=== PATIENT | female | born 1930 | race Caucasian/White ===

== ENCOUNTER 2018-11-09 13:22 | Inpatient (IN) | payer OTHER ==
--- NOTE | 2018-11-09 14:07 | PDOC ---
Documentation entered by Liz Driscoll SCRIBE, acting as scribe for Carol Gaalviz MD. Carol Galaviz MD: This documentation has been prepared by the Yamila urias Adrianna, SCRIBE, under my direction and personally reviewed by me in its entirety. I confirm that the documentation accurately reflects all work, treatment, procedures, and medical decision making performed by me. Attending Attestation - Resident Resident Name: Tyrel Hernandez - ED Attending Attestation I have performed the following: I have examined & evaluated the patient, The case was reviewed & discussed with the resident, I agree w/resident's findings & plan, Exceptions are as noted - HPI HPI: 87 yo F with h/o of DM, HTN, and multiple myeloma, who presents to the ED for evaluation of worsening leg swelling for one month. Patient states over last few days they have gotten progressively worse, and now complains of pain, swelling, and redness in right leg. She states that when she lies flat, she feels like her right leg falls asleep. Patient was seen one week ago at [facility], and had a doppler at that time which was reportedly negative. no f/c no cp no sob. no h/o pe or dvt. meds: lisinopril Allergies: NKA, NKDA Surgical History: None reported Social History: None reported PCP: Dr. Ceja Cistern Room Operator: Dr. Yepez 11/09/18 14:11 - Physicial Exam PE: 11/09/18 14:05 awake alert NAD lungs clear bilat heart rrr no mrg abd soft nt nd ext wwp. bilat pitting edema. right foot redness ,ttp. skin scaling right foot. . 2+ dp/ pt pulses bilat. - Medical Decision Making 11/09/18 14:06 87 yo F h/o HTN DM here with bilatleg edema. redness and swelling. differential DVT cellulitis, chf renal failure. plan doppler bilat legs, cxr ekg labs. 11/09/18 14:15 d/w DR Calixto for admission. dr herrera requesting Dr Chaidez for oncology. 11/09/18 18:29 EXAM#: TYPE/EXAM: RESULT: [id number] US/DUPLEX VASCUL US-2LEGS Bilateral swelling. Rule out DVT Impression: There is no evidence of deep venous thromboses in both lower extremities. Reported By: Gopal Carlson MD 11/09/18 16:28 EXAM#: TYPE/EXAM: RESULT: [id number] RAD/CHEST X-RAY PORTABLE* Chest : Shortness of breath A single view of the chest has been submitted. This are weak inspiration with elevated right hemidiaphragm, prominent mediastinum but no sign of infiltrate or failure. Angles are sharp. The soft tissues are intact. There is slight rotation to the left with some arthritic changes. Correlation recommended. Reported By: Nirmal Tabares MD 11/09/18 18:08
--- NOTE | 2018-11-09 14:23 | PDOC ---
History of Present Illness - General Chief Complaint: Edema Stated Complaint: RT LEG CELLULITIS Time Seen by Provider: 11/09/18 13:54 - History of Present Illness Initial Comments: History limited by language barrier - belizean speaking patient. [employer] official court interpreter [id number] used for translation 87 yo F who denies having any medical hx but per the chart she has a pmh of Multiple Myeloma, HTN, HCL, and NIDDM which she denies. She presents to the ER sent by Dr. Tan because her legs are swollen and she has pain in both legs. She states her leg pain is getting worse. The right leg hurts more than the left but the left still hurts. She states her legs have been swelling for the past month. She denies any complaints other than the leg pain and swelling. Patient denies having any chest pain, SOB, or difficulty breathing. Denies recent travel. Denies personal or family hx of blood clots. Denies taking any exogenous estrogen supplements. Allergies: NKA, NKDA Social: Patient lives alone. Has an aid who helps her out every day at home for 8 hours a day. Denies drinking, smoking, or other substance usage. 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 (Affiliated in [place]) Past History - Past Medical History Allergies/Adverse Reactions: Allergies Allergy/AdvReac Type Severity Reaction Status Date / Time No Known Allergies Allergy Verified 11/09/18 13:41 Home Medications: Ambulatory Orders Acetaminophen [Tylenol Extra Strength] 500 mg PO PRN PRN 05/19/15 Aspirin [ASA -] 81 mg PO DAILY 05/19/15 Calcium Carbonate/Vitamin D3 [Calcium 500 + Vit D 200 Caplet] 1 each PO DAILY Ergocalciferol (Vitamin D2) [Vitamin D2] 50,000 unit PO WEEKLY 05/19/15 Lisinopril 10 mg PO DAILY 05/19/15 Rosuvastatin Calcium [Crestor] 10 mg PO DAILY 05/19/15 Valacyclovir HCl [Valtrex -] 500 mg PO DAILY 05/19/15 Cancer: Yes (BREAST CA, multiple myloma) COPD: No HTN: Yes Hypercholesterolemia: Yes Kidney Stones: Yes - Suicide/Smoking/Psychosocial Hx Smoking History: Never smoked Information on smoking cessation initiated: No Hx Alcohol Use: No Drug/Substance Use Hx: No Substance Use Type: None Review of Systems - Review of Systems Able to Perform ROS?: Yes Comments:: CONSTITUTIONAL: Absent: fever, no chills, no fatigue EYES: Absent: visual changes ENT: Absent: ear pain, no sore throat CARDIOVASCULAR: Absent: chest pain, no palpitations RESPIRATORY: Absent: cough, no SOB GI: Absent: abdominal pain, no nausea, no vomiting, no constipation, no diarrhea GENITOURINARY: Absent: dysuria, no frequency, no hematuria MUSKULOSKELETAL: Absent: back pain, no arthralgia, no myalgia SKIN: Present: rash NEURO: Absent: headache *Physical Exam - Vital Signs Last Vital Signs Temp Pulse Resp BP Pulse Ox 98.7 F 81 18 139/90 95 11/09/18 13:41 11/09/18 13:41 11/09/18 13:41 11/09/18 13:41 11/09/18 13:41 - Physical Exam Comments: GENERAL: Well-appearing, well-nourished. No apparent distress. HEENT: Normocephalic, atraumatic. PERRL, EOM intact. CARDIOVASCULAR: Normal S1, S2. Regular rate and rhythm. PULMONARY: No evidence of respiratory distress. Lungs clear to auscultation bilaterally. No wheezing, rales or rhonchi. ABDOMEN: Soft, non-distended, non-tender. EXTREMITIES: Normal ROM in all four extremities. LEGS: b/l 3+ edema up to her knees. scaling and erythema in both feet and ankles. The shins are TTP and warm. SKIN: Warm, dry. NEUROLOGICAL: No focal neurological deficits. ED Treatment Course - LABORATORY CBC & Chemistry Diagram: 11/09/18 14:19 11/09/18 14:19 Medical Decision Making - Medical Decision Making History limited by language barrier - belizean speaking patient. [employer] official court interpreter #[id number] used for translation 87 yo F who denies having any medical hx but per the chart she has a pmh of Multiple Myeloma, HTN, HCL, and NIDDM which she denies. She presents to the ER sent by Dr. Tan because her legs are swollen and she has pain in both legs. She states her leg pain is getting worse. The right leg hurts more than the left but the left still hurts. She states her legs have been swelling for the past month. She denies any complaints other than the leg pain and swelling. Patient denies having any chest pain, SOB, or difficulty breathing. Denies recent travel. Denies personal or family hx of blood clots. Denies taking any exogenous estrogen supplements. Vital Signs Temp Pulse Resp BP Pulse Ox 98.7 F 81 18 139/90 95 11/09/18 13:41 11/09/18 13:41 11/09/18 13:41 11/09/18 13:41 11/09/18 13:41 DDx IBNLT: heart failure, DVT, PE, cellulitis Plan: Labs, urine, Duplex DVT, Admit to hospital. Patient has Cellulitis and will need antibiotics for it. *DC/Admit/Observation/Transfer Diagnosis at time of Disposition: Leg swelling - Discharge Dispostion Disposition: HOME Condition at time of disposition: Stable Decision to Admit order: Yes - Referrals - Patient Instructions - Post Discharge Activity
--- NOTE | 2018-11-09 14:38 | HP ---
Admitting History and Physical - Primary Care Physician PCP: Debo Ceja I - Admission Chief Complaint: Lower extremity swelling History of Present Illness: Patient is a 87 y/o female with past medical history of HTN, HLD, NIDDM, multiple myeloma. Patient presented to ER with complaints of worsening bilateral lower extremity swelling and redness. Patient states that the swelling and redness began 1 month ago but got progressively worse. She states having lower extremity with movement. History Source: Patient Limitations to Obtaining History: No Limitations - Past Medical History Cardiovascular: Yes: HTN, Hyperlipdemia Heme/Onc: Yes: Other (multiple myeloma) - Smoking History Smoking history: Never smoked - Alcohol/Substance Use Hx Alcohol Use: No - Social History Usual Living Arrangement: Yes: Alone ADL: Support Services History of Recent Travel: No Home Medications - Allergies Allergies/Adverse Reactions: Allergies Allergy/AdvReac Type Severity Reaction Status Date / Time No Known Allergies Allergy Verified 11/09/18 13:41 - Home Medications Home Medications: Ambulatory Orders Acetaminophen [Tylenol Extra Strength] 500 mg PO PRN PRN 05/19/15 Aspirin [ASA -] 81 mg PO DAILY 05/19/15 Calcium Carbonate/Vitamin D3 [Calcium 500 + Vit D 200 Caplet] 1 each PO DAILY Ergocalciferol (Vitamin D2) [Vitamin D2] 50,000 unit PO WEEKLY 05/19/15 Lisinopril 10 mg PO DAILY 05/19/15 Rosuvastatin Calcium [Crestor] 10 mg PO DAILY 05/19/15 Valacyclovir HCl [Valtrex -] 500 mg PO DAILY 05/19/15 Review of Systems - Review of Systems Constitutional: reports: Weakness Eyes: reports: No Symptoms HENT: reports: No Symptoms Neck: reports: No Symptoms Cardiovascular: reports: No Symptoms Respiratory: reports: No Symptoms Gastrointestinal: reports: No Symptoms Genitourinary: reports: Frequency Breasts: reports: No Symptoms Reported Musculoskeletal: reports: Muscle Weakness Integumentary: reports: Erythema, Other (swelling) Neurological: reports: No Symptoms Endocrine: reports: No Symptoms Hematology/Lymphatic: reports: No Symptoms Psychiatric: reports: No Symptoms Physical Examination Vital Signs: Vital Signs Temperature 98.7 F 11/09/18 13:41 Pulse Rate 81 11/09/18 13:41 Respiratory Rate 18 11/09/18 13:41 Blood Pressure 139/90 11/09/18 13:41 O2 Sat by Pulse Oximetry (%) 95 11/09/18 13:41 Constitutional: Yes: No Distress, Calm Eyes: Yes: Conjunctiva Clear HENT: Yes: Atraumatic Cardiovascular: Yes: Regular Rate and Rhythm Respiratory: Yes: Regular, CTA Bilaterally Gastrointestinal: Yes: Normal Bowel Sounds, Soft Musculoskeletal: Yes: Muscle Weakness Extremities: Yes: Erythema (B/L) Edema: Yes Edema: LLE: 3+, RLE: 3+ Integumentary: Yes: Erythema, Other (edema,b/l lower extremity) Neurological: Yes: Alert, Weakness Psychiatric: Yes: Alert, Oriented Problem List - Problems (1) HTN (hypertension) Assessment/Plan: -Lisinopril and Bystolic -low Na diet Code(s): I10 - ESSENTIAL (PRIMARY) HYPERTENSION (2) HLD (hyperlipidemia) Assessment/Plan: -Crestor Code(s): E78.5 - HYPERLIPIDEMIA, UNSPECIFIED (3) Cellulitis Assessment/Plan: -ID consult -afebrile -BC pending Code(s): L03.90 - CELLULITIS, UNSPECIFIED (4) Leg swelling Assessment/Plan: -Furosemide -Vascular US to R/O DVT Code(s): M79.89 - OTHER SPECIFIED SOFT TISSUE DISORDERS
[2018-11-09 15:52] LABS: BASO % 0.4 % (0-2.0); EOS % 1.2 % (0-4.5); HEMATOCRIT 35.1 % (32.4-45.2); HEMOGLOBIN 11.8 GM/dL (10.7-15.3); LYMPH % 26.8 % (8-40); MCH 32.7 pg (25.7-33.7); MCHC 33.7 g/dl (32.0-36.0); MEAN CELL VOLUME 96.9 fl (80-96); MEAN PLT VOLUME 8.7 fl (7.5-11.1); MONO % 5.6 % (3.8-10.2); PLATELET COUNT 196 K/MM3 (134-434); RBC 3.62 M/mm3 (3.60-5.2); RDW 12.6 % (11.6-15.6); WHITE BLOOD COUNT 5.8 K/mm3 (4.0-10.0)
[2018-11-09 16:12] LABS: ALBUMIN 3.8 g/dl (3.4-5.0); BILIRUBIN,TOTAL 0.6 mg/dL (0.2-1); BLOOD UREA NITROGEN 21.3 mg/dL (7-18); CALCIUM 9.3 mg/dL (8.5-10.1); CREATININE 1.3 mg/dL (0.55-1.3); N-TERMINAL BNP 399.6 pg/ml (5-450); TOT PROT 6.7 g/dl (6.4-8.2)
--- NOTE | 2018-11-09 18:14 | CON.ID ---
Consult Consult Specialty:: infectious disease Referred by:: dr herrera/ivy Reason for Consultation:: bilateral leg erythema - History of Present Illness Chief Complaint: bilateral leg edema and erythema History of Present Illness: 87 yo female admitted from home with one month history of erythema and swelling of her legs no fever or chills no nausea or vomiting reports worsening over last one week seen at [facility] last week- duplex negative per ER report - History Source History Provided By: Medical Record Limitations to Obtaining History: Language Barrier - Past Medical History Cardio/Vascular: Yes: HTN, Hyperlipdemia Heme/Onc: Yes: Cancer (multiple myeloma, history of breast cancer) Endocrine: Yes: Diabetes Mellitus - Alcohol/Substance Use Hx Alcohol Use: No - Smoking History Smoking history: Never smoked - Social History Usual Living Arrangement: Other (has [employer]EL[employer]) ADL: Support Services Place of : Other ([facility]) History of Recent Travel: No Home Medications - Allergies Allergies/Adverse Reactions: Allergies Allergy/AdvReac Type Severity Reaction Status Date / Time No Known Allergies Allergy Verified 11/09/18 13:41 - Home Medications Home Medications: Ambulatory Orders Acetaminophen [Tylenol Extra Strength] 500 mg PO PRN PRN 05/19/15 Aspirin [ASA -] 81 mg PO DAILY 05/19/15 Calcium Carbonate/Vitamin D3 [Calcium 500 + Vit D 200 Caplet] 1 each PO DAILY Ergocalciferol (Vitamin D2) [Vitamin D2] 50,000 unit PO WEEKLY 05/19/15 Lisinopril 10 mg PO DAILY 05/19/15 Rosuvastatin Calcium [Crestor] 10 mg PO DAILY 05/19/15 Valacyclovir HCl [Valtrex -] 500 mg PO DAILY 05/19/15 Family Disease History - Family Disease History Family History: Unable to Obtain Review of Systems - Review of Systems Constitutional: reports: No Symptoms. denies: Chills, Fever Eyes: reports: No Symptoms HENT: reports: No Symptoms Neck: reports: No Symptoms Cardiovascular: denies: Chest Pain Respiratory: denies: Cough Gastrointestinal: denies: Abdominal Pain Physical Exam Vital Signs: Vital Signs Temperature 98.7 F 11/09/18 13:41 Pulse Rate 81 11/09/18 13:41 Respiratory Rate 18 11/09/18 13:41 Blood Pressure 139/90 11/09/18 13:41 O2 Sat by Pulse Oximetry (%) 95 11/09/18 13:41 Constitutional: Yes: Well Nourished, No Distress, Calm Eyes: Yes: Conjunctiva Clear HENT: Yes: Atraumatic, Normocephalic. No: Thrush Neck: Yes: Supple Cardiovascular: Yes: Regular Rate and Rhythm Respiratory: Yes: Regular, CTA Bilaterally Gastrointestinal: Yes: Normal Bowel Sounds, Soft ...Rectal Exam: Yes: Deferred Extremities: Yes: Erythema (bilateral with edema, tender and warm to touch) Neurological: Yes: Alert, Oriented Labs: CBC, BMP 11/09/18 14:19 11/09/18 14:19 blood cultures pending Imaging - Results Chest X-ray: Report Reviewed, Image Reviewed (no infiltrate) Ultrasound: Report Reviewed (no DVT) Problem List - Problems (1) Cellulitis Code(s): L03.90 - CELLULITIS, UNSPECIFIED (2) Leg swelling Code(s): M79.89 - OTHER SPECIFIED SOFT TISSUE DISORDERS Assessment/Plan can treat with cefazolin adjusted for renal function f/u blood cultures
[2018-11-09] MEDS ORDERED: DEXTROSE 5%-WATER - 50 ML IVPB ONE (21:59)
[2018-11-09] MEDS ORDERED: ceFAZolin SODIUM 1 GM VIAL ONE (21:59)
[2018-11-09] MEDS: CEFAZOLIN 1 GM in DEXTROSE 5%-WATER - 50 ML IVPB SCH (22:30)
[2018-11-09] MEDS: GABAPENTIN 100 MG CAPSULE (FP) PO SCH (23:06)
[2018-11-09] MEDS: ROSUVASTATIN CA 10 MG TABLET (FP) PO SCH (23:06)
[2018-11-09] MEDS: CALCIUM 500MG/VIT-D 200 UNITS COMBO TABLET (FP) PO SCH (23:06)
[2018-11-09] MEDS: HEPARIN NA (PORCINE) 5,000 UNITS/ML 1ML VIAL SQ SCH (23:06)
[2018-11-10 08:06] LABS: BASO % 0.7 % (0-2.0); HEMATOCRIT 35.9 % (32.4-45.2); LYMPH % 33.6 % (8-40); MCH 32.7 pg (25.7-33.7); MCHC 33.5 g/dl (32.0-36.0); MEAN CELL VOLUME 97.6 fl (80-96); MEAN PLT VOLUME 9.2 fl (7.5-11.1); MONO % 7.7 % (3.8-10.2); PLATELET COUNT 193 K/MM3 (134-434); RBC 3.68 M/mm3 (3.60-5.2); RDW 12.8 % (11.6-15.6); WHITE BLOOD COUNT 4.1 K/mm3 (4.0-10.0)
[2018-11-10 08:26] LABS: ALBUMIN 3.5 g/dl (3.4-5.0); BILIRUBIN,TOTAL 0.9 mg/dL (0.2-1); BLOOD UREA NITROGEN 17.4 mg/dL (7-18); CALCIUM 9.4 mg/dL (8.5-10.1); CREATININE 1.3 mg/dL (0.55-1.3); MAGNESIUM 2.3 mg/dL (1.8-2.4); N-TERMINAL BNP 1421.4 pg/ml (5-450); PHOSPHOROUS 3.5 mg/dL (2.5-4.9); TOT PROT 6.2 g/dl (6.4-8.2)
--- NOTE | 2018-11-10 09:50 | PN ---
Progress Note, Physician History of Present Illness: pain and swelling of legs - Current Medication List Current Medications: Active Medications Calcium Carbonate/Cholecalciferol (Os-Abran 500+D -) 1 tab PO BID [facility] Last Admin: 11/09/18 23:06 Dose: Not Given Citalopram Hydrobromide (Celexa -) 10 mg PO DAILY [facility] Folic Acid (Folic Acid -) 1 mg PO DAILY [facility] Furosemide (Lasix -) 20 mg PO DAILY [facility] Gabapentin (Neurontin -) 300 mg PO HS [facility] Last Admin: 11/09/18 23:06 Dose: 300 mg Heparin Sodium (Porcine) (Heparin -) 5,000 unit SQ BID [facility] Last Admin: 11/09/18 23:06 Dose: 5,000 unit Cefazolin Sodium 1 gm/ (Dextrose) 50 mls @ 100 mls/hr IVPB BID [facility] Last Admin: 11/09/18 22:30 Dose: 100 mls/hr Lisinopril (Prinivil) 20 mg PO DAILY [facility] Multivitamins (Total B With C -) 1 each PO DAILY [facility] Nebivolol (Bystolic -) 2.5 mg PO DAILY [facility] Pantoprazole Sodium (Protonix -) 40 mg PO DAILY [facility] Rosuvastatin Calcium (Crestor -) 10 mg PO HS [facility] Last Admin: 11/09/18 23:06 Dose: 10 mg - Objective Vital Signs: Vital Signs Temperature 98.1 F 11/10/18 07:50 Pulse Rate 66 11/10/18 07:50 Respiratory Rate 18 11/10/18 07:50 Blood Pressure 137/60 11/10/18 07:50 O2 Sat by Pulse Oximetry (%) 95 11/10/18 00:25 Cardiovascular: Yes: S1, S2 Respiratory: Yes: Regular, CTA Bilaterally Gastrointestinal: Yes: Normal Bowel Sounds, Soft Edema: Yes Edema: LLE: 2+, RLE: 2+ Integumentary: Yes: Erythema, Venous Stasis Changes Labs: CBC, BMP 11/10/18 06:55 11/10/18 06:55 Problem List - Problems (1) CHF (congestive heart failure) Assessment/Plan: -IV LASIX ECHO CARDIO FOLLOW LABS Code(s): I50.9 - HEART FAILURE, UNSPECIFIED (2) Cellulitis Assessment/Plan: -IV ABX ID ON BOARD Code(s): L03.90 - CELLULITIS, UNSPECIFIED (3) HTN (hypertension) Assessment/Plan: MONITOR Code(s): I10 - ESSENTIAL (PRIMARY) HYPERTENSION (4) Leg swelling Assessment/Plan: DUPLEX NEGATIVE LASIX Code(s): M79.89 - OTHER SPECIFIED SOFT TISSUE DISORDERS
[2018-11-10] MEDS ORDERED: FUROSEMIDE 20 MG TABLET (FP) PO SCH (10:00)
--- NOTE | 2018-11-10 10:12 | CON.CARD ---
Consult Consult Specialty:: Cardiology Referred by:: Dominick Reason for Consultation:: CHF, edema - History of Present Illness Chief Complaint: edema History of Present Illness: Patient is a 87 y/o female with past medical history of HTN, HLD, NIDDM, multiple myeloma. Patient presented to ER with complaints of worsening bilateral lower extremity swelling and redness for 3-4 weeks. No chest pain, orthopnea, pnd, palpitations, dizziness or syncope. Exercise tolerance is poor. CXR saleem duplex no DVT echo is pending started on IV lasix and ancef. - History Source History Provided By: Patient, Medical Record - Past Medical History Cardio/Vascular: Yes: HTN, Hyperlipdemia Endocrine: Yes: Diabetes Mellitus - Alcohol/Substance Use Hx Alcohol Use: No - Smoking History Smoking history: Never smoked - Social History Usual Living Arrangement: Other (has OUTPATIENT PSYCHIATRIST) ADL: Support Services History of Recent Travel: No Home Medications - Allergies Allergies/Adverse Reactions: Allergies Allergy/AdvReac Type Severity Reaction Status Date / Time No Known Allergies Allergy Verified 11/09/18 13:41 - Home Medications Home Medications: Ambulatory Orders Acetaminophen [Tylenol Extra Strength] 500 mg PO PRN PRN 05/19/15 Aspirin [ASA -] 81 mg PO DAILY 05/19/15 Calcium Carbonate/Vitamin D3 [Calcium 500 + Vit D 200 Caplet] 1 each PO DAILY Ergocalciferol (Vitamin D2) [Vitamin D2] 50,000 unit PO WEEKLY 05/19/15 Lisinopril 10 mg PO DAILY 05/19/15 Rosuvastatin Calcium [Crestor] 10 mg PO DAILY 05/19/15 Valacyclovir HCl [Valtrex -] 500 mg PO DAILY 05/19/15 Review of Systems - Review of Systems Constitutional: reports: No Symptoms Eyes: reports: No Symptoms HENT: reports: No Symptoms, Gingival Bleeding Neck: reports: No Symptoms Cardiovascular: reports: Edema Respiratory: reports: No Symptoms Gastrointestinal: reports: No Symptoms Genitourinary: reports: No Symptoms Vital Signs: Vital Signs Temperature 98.1 F 11/10/18 07:50 Pulse Rate 66 11/10/18 07:50 Respiratory Rate 18 11/10/18 07:50 Blood Pressure 137/60 11/10/18 07:50 O2 Sat by Pulse Oximetry (%) 95 11/10/18 00:25 Constitutional: Yes: No Distress, Calm Eyes: Yes: Conjunctiva Clear, EOM Intact HENT: Yes: Atraumatic, Normocephalic Neck: Yes: Trachea Midline Respiratory: Yes: CTA Bilaterally Gastrointestinal: Yes: Normal Bowel Sounds, Soft Cardiovascular: Yes: Regular Rate and Rhythm JVD: No Carotid Bruit: No PMI: Non-Displaced Heart Sounds: Yes: S1, S2 Murmur: Yes: Systolic Murmur, Grade 2 Musculoskeletal: Yes: WNL Extremities: Yes: WNL, Erythema (bilat) Edema: Yes Edema: LLE: 1+, RLE: 1+ Peripheral Pulses WNL: No - Other Data Labs, Other Data: CBC, BMP 11/10/18 06:55 11/10/18 06:55 Troponin, BNP 11/09/18 11/09/18 11/10/18 14:19 14:19 06:55 Troponin I < 0.02 B-Natriuretic Peptide 399.6 1421.4 H Troponin, BNP 11/09/18 11/09/18 11/10/18 14:19 14:19 06:55 Troponin I < 0.02 B-Natriuretic Peptide 399.6 1421.4 H Imaging - Results Chest X-ray: Report Reviewed Ultrasound: Report Reviewed (no dvt) EKG: Report Reviewed Assessment/Plan Patient is a 87 y/o female with past medical history of HTN, HLD, NIDDM, multiple myeloma. Patient presented to ER with complaints of worsening bilateral lower extremity swelling and redness. CHF-acute on chronic diastolic CXR saleem duplex no DVT echo is pending continue lasix for diuresis IV follow daily wts and electrolytes. will follow with you.
[2018-11-10] MEDS ORDERED: ceFAZolin SODIUM 1 GM VIAL ONE (10:23)
[2018-11-10] MEDS ORDERED: PT OWN MED DRAWER 7, Y5N ONE (10:23)
[2018-11-10] MEDS ORDERED: DEXTROSE 5%-WATER - 50 ML IVPB ONE (10:24)
[2018-11-10] MEDS: FOLIC ACID 1 MG TABLET (FP) PO SCH (10:27)
[2018-11-10] MEDS: PANTOPRAZOLE 40 MG TABLET (FP) PO SCH (10:27)
[2018-11-10] MEDS: CALCIUM 500MG/VIT-D 200 UNITS COMBO TABLET (FP) PO SCH ×2 (10:27→23:00)
[2018-11-10] MEDS: HEPARIN NA (PORCINE) 5,000 UNITS/ML 1ML VIAL SQ SCH ×2 (10:27→23:46)
[2018-11-10] MEDS: CEFAZOLIN 1 GM in DEXTROSE 5%-WATER - 50 ML IVPB SCH ×2 (10:27→23:46)
[2018-11-10] MEDS: LISINOPRIL 20 MG TABLET (FP) PO SCH (10:27)
[2018-11-10] MEDS: CITALOPRAM HYDROBROMIDE 10 MG TABLET (FP) PO SCH (10:27)
[2018-11-10] MEDS: VITAMIN B COMPLEX W/C COMBO TABLET (FP) PO SCH (10:27)
[2018-11-10] MEDS: FUROSEMIDE 40 MG/4 ML INJECTABLE VIAL IVPUSH SCH (10:27)
[2018-11-10] MEDS: NEBIVOLOL 2.5 MG TABLET (FP) PO SCH (11:14)
--- NOTE | 2018-11-10 14:11 | PN ---
Progress Note (short form) - Note Progress Note: having an ECHO now alert Vital Signs Period Temp Pulse Resp BP Sys/Cox Pulse Ox Last 24 Hr 97.9 F-98.1 F 66-76 16-18 122-137/60-74 95 erythema of the legs improved edema unchanged CBC, BMP 11/10/18 06:55 11/10/18 06:55 Current Medications Calcium Carbonate/Cholecalciferol (Os-Abran 500+D -) 1 tab PO BID [facility] Last Admin: 11/10/18 10:27 Dose: 1 tab Citalopram Hydrobromide (Celexa -) 10 mg PO DAILY [facility] Last Admin: 11/10/18 10:27 Dose: 10 mg Folic Acid (Folic Acid -) 1 mg PO DAILY [facility] Last Admin: 11/10/18 10:27 Dose: 1 mg Furosemide (Lasix Injection -) 40 mg IVPUSH DAILY [facility] Last Admin: 11/10/18 10:27 Dose: 40 mg Gabapentin (Neurontin -) 300 mg PO HS [facility] Last Admin: 11/09/18 23:06 Dose: 300 mg Heparin Sodium (Porcine) (Heparin -) 5,000 unit SQ BID [facility] Last Admin: 11/10/18 10:27 Dose: 5,000 unit Cefazolin Sodium 1 gm/ (Dextrose) 50 mls @ 100 mls/hr IVPB BID [facility] Last Admin: 11/10/18 10:27 Dose: 100 mls/hr Lisinopril (Prinivil) 20 mg PO DAILY [facility] Last Admin: 11/10/18 10:27 Dose: 20 mg Multivitamins (Total B With C -) 1 each PO DAILY [facility] Last Admin: 11/10/18 10:27 Dose: 1 each Nebivolol (Bystolic -) 2.5 mg PO DAILY [facility] Last Admin: 11/10/18 11:14 Dose: 2.5 mg Pantoprazole Sodium (Protonix -) 40 mg PO DAILY [facility] Last Admin: 11/10/18 10:27 Dose: 40 mg Rosuvastatin Calcium (Crestor -) 10 mg PO HS [facility] Last Admin: 11/09/18 23:06 Dose: 10 mg a/p cellulitis continue cefazolin, erythema improved CHF/peripheral edema-improved on diuretics echo pending Problem List - Problems (1) Cellulitis Code(s): L03.90 - CELLULITIS, UNSPECIFIED (2) Leg swelling Code(s): M79.89 - OTHER SPECIFIED SOFT TISSUE DISORDERS
--- NOTE | 2018-11-10 14:58 | ECHO ---
Name: JOSE DANIEL CIFUENTES Exam:Adult Echocardiogram Study Date: 11/10/2018 02:05 PM Age: 87 yrs Reason For Study: CHF Height: 56 in Weight: 132 lb BSA: 1.5 m2 MMode/2D Measurements & Calculations IVSd: 0.96 cm ACS: 1.9 cm LVIDd: 2.9 cm LVIDs: 2.2 cm LVPWd: 1.5 cm EDV(Teich): 31.3 ml ESV(Teich): 16.8 ml Doppler Measurements & Calculations MV E max elijah: 63.2 cm/sec MR max elijah: 323.1 cm/sec MV A max elijah: 86.9 cm/sec MR max P.7 mmHg MV E/A: 0.73 TR max elijah: 272.8 cm/sec Med Peak E' Elijah: 7.6 cm/sec TR max P.8 mmHg Med E/e': 8.3 Lat Peak E' Elijah: 6.8 cm/sec Lat E/e': 9.3 Procedure A complete two-dimensional transthoracic echocardiogram was performed (2D, M-mode, Doppler and color flow Doppler). The study was technically limited with all images being suboptimal in quality. Left Ventricle The left ventricular size, thickness and function are normal. Ejection Fraction = 65%. The transmitra l spectral Doppler flow pattern is suggestive of impaired LV relaxation. The left ventricular wall celine on is normal. Right Ventricle The right ventricle is normal in size and function. Atria Normal left and right atrial size and function. Mitral Valve The mitral valve is normal in structure and function. There is trace mitral regurgitation. Tricuspid Valve The tricuspid valve is normal in structure and function. There is trace tricuspid regurgitation. Righ t ventricular systolic pressure is 30 mmhg. Aortic Valve The aortic valve is normal in structure and function. Pulmonic Valve The pulmonic valve is not well visualized. Great Vessels The aortic root is normal size. Pericardium/Pleura There is no pericardial effusion. There is no pleural effusion. Interpretation Summary The left ventricular size, thickness and function are normal Ejection Fraction = 65%. The right ventricle is normal in size and function. Normal left and right atrial size and function. There is trace mitral regurgitation. There is trace tricuspid regurgitation. Right ventricular systolic pressure is 30 mmhg. MD Celso Simon 11/10/2018 02:57 PM
[2018-11-10] MEDS ORDERED: ACETAMINOPHEN 325 MG TABLET (FP) PO PRN (15:26)
[2018-11-10] MEDS: ROSUVASTATIN CA 10 MG TABLET (FP) PO SCH (23:00)
[2018-11-10] MEDS: GABAPENTIN 100 MG CAPSULE (FP) PO SCH (23:00)
--- NOTE | 2018-11-11 09:07 | PN ---
Progress Note, Physician - Current Medication List Current Medications: Active Medications Acetaminophen (Tylenol -) 650 mg PO Q4H PRN PRN Reason: PAIN SCALE 1-5 Calcium Carbonate/Cholecalciferol (Os-Abran 500+D -) 1 tab PO BID [facility] Last Admin: 11/10/18 23:00 Dose: 1 tab Citalopram Hydrobromide (Celexa -) 10 mg PO DAILY [facility] Last Admin: 11/10/18 10:27 Dose: 10 mg Clotrimazole (Lotrisone Cream (Small Tube)) 1 applic TP BID [facility] Folic Acid (Folic Acid -) 1 mg PO DAILY [facility] Last Admin: 11/10/18 10:27 Dose: 1 mg Furosemide (Lasix Injection -) 40 mg IVPUSH DAILY [facility] Last Admin: 11/10/18 10:27 Dose: 40 mg Gabapentin (Neurontin -) 300 mg PO HS [facility] Last Admin: 11/10/18 23:00 Dose: 300 mg Heparin Sodium (Porcine) (Heparin -) 5,000 unit SQ BID [facility] Last Admin: 11/10/18 23:46 Dose: Not Given Cefazolin Sodium 1 gm/ (Dextrose) 50 mls @ 100 mls/hr IVPB BID [facility] Last Admin: 11/10/18 23:46 Dose: Not Given Lisinopril (Prinivil) 20 mg PO DAILY [facility] Last Admin: 11/10/18 10:27 Dose: 20 mg Multivitamins (Total B With C -) 1 each PO DAILY [facility] Last Admin: 11/10/18 10:27 Dose: 1 each Nebivolol (Bystolic -) 2.5 mg PO DAILY [facility] Last Admin: 11/10/18 11:14 Dose: 2.5 mg Pantoprazole Sodium (Protonix -) 40 mg PO DAILY [facility] Last Admin: 11/10/18 10:27 Dose: 40 mg Rosuvastatin Calcium (Crestor -) 10 mg PO HS [facility] Last Admin: 11/10/18 23:00 Dose: 10 mg - Objective Vital Signs: Vital Signs Temperature 98.9 F 11/11/18 06:11 Pulse Rate 67 11/11/18 06:11 Respiratory Rate 20 11/11/18 06:11 Blood Pressure 141/85 11/11/18 06:11 O2 Sat by Pulse Oximetry (%) 95 11/10/18 00:25 Cardiovascular: Yes: Regular Rate and Rhythm Respiratory: Yes: Regular, CTA Bilaterally Gastrointestinal: Yes: Normal Bowel Sounds, Soft Extremities: Yes: Erythema, Other (SCALING) Edema: Yes Labs: CBC, BMP 11/10/18 06:55 11/10/18 06:55 Problem List - Problems (1) CHF (congestive heart failure) Assessment/Plan: -IV LASIX ECHO CARDIO FOLLOW LABS Code(s): I50.9 - HEART FAILURE, UNSPECIFIED (2) Cellulitis Assessment/Plan: -IV ABX ID ON BOARD Code(s): L03.90 - CELLULITIS, UNSPECIFIED (3) HTN (hypertension) Assessment/Plan: MONITOR Code(s): I10 - ESSENTIAL (PRIMARY) HYPERTENSION (4) Leg swelling Assessment/Plan: DUPLEX NEGATIVE LASIX Code(s): M79.89 - OTHER SPECIFIED SOFT TISSUE DISORDERS (5) Tinea pedis Assessment/Plan: LOTRISONE Code(s): B35.3 - [facility]
[2018-11-11] MEDS ORDERED: PT OWN MED DRAWER 7, Y5N ONE ×2 (10:01→22:45)
[2018-11-11] MEDS ORDERED: ceFAZolin SODIUM 1 GM VIAL ONE (10:01)
[2018-11-11] MEDS ORDERED: DEXTROSE 5%-WATER - 50 ML IVPB ONE (10:01)
[2018-11-11] MEDS: CEFAZOLIN 1 GM in DEXTROSE 5%-WATER - 50 ML IVPB SCH (10:08)
[2018-11-11] MEDS: CITALOPRAM HYDROBROMIDE 10 MG TABLET (FP) PO SCH (10:09)
[2018-11-11] MEDS: PANTOPRAZOLE 40 MG TABLET (FP) PO SCH (10:09)
[2018-11-11] MEDS: HEPARIN NA (PORCINE) 5,000 UNITS/ML 1ML VIAL SQ SCH ×2 (10:09→22:14)
[2018-11-11] MEDS: FUROSEMIDE 40 MG/4 ML INJECTABLE VIAL IVPUSH SCH (10:09)
[2018-11-11] MEDS: CALCIUM 500MG/VIT-D 200 UNITS COMBO TABLET (FP) PO SCH ×2 (10:10→22:14)
[2018-11-11] MEDS: LISINOPRIL 20 MG TABLET (FP) PO SCH (10:10)
[2018-11-11] MEDS: CLOTRIMAZOLE/BETAMET DIPROP 15 GM TUBE TP SCH ×2 (10:30→22:14)
[2018-11-11] MEDS: VITAMIN B COMPLEX W/C COMBO TABLET (FP) PO SCH (10:31)
[2018-11-11] MEDS: FOLIC ACID 1 MG TABLET (FP) PO SCH (10:31)
[2018-11-11] MEDS: NEBIVOLOL 2.5 MG TABLET (FP) PO SCH (11:00)
--- NOTE | 2018-11-11 12:00 | PN ---
Progress Note (short form) - Note Progress Note: alert c/o pain in her legs bilaterally Vital Signs Period Temp Pulse Resp BP Sys/Cox Pulse Ox Last 24 Hr 98 F-98.9 F 66-68 18-20 120-141/70-85 cor-rrr lungs decreased bs at bases ext less edema, less erythema, dry skin both feet CBC, BMP 11/10/18 06:55 11/10/18 06:55 Microbiology 11/09/18 14:19 Blood - Peripheral Venous Blood Culture - Preliminary NO GROWTH OBTAINED AFTER 24 HOURS, INCUBATION TO CONTINUE FOR 4 DAYS. 11/09/18 14:19 Blood - Peripheral Venous Blood Culture - Preliminary NO GROWTH OBTAINED AFTER 24 HOURS, INCUBATION TO CONTINUE FOR 4 DAYS. Current Medications Acetaminophen (Tylenol -) 650 mg PO Q4H PRN PRN Reason: PAIN SCALE 1-5 Last Admin: 11/11/18 10:10 Dose: 650 mg Calcium Carbonate/Cholecalciferol (Os-Abran 500+D -) 1 tab PO BID [facility] Last Admin: 11/11/18 10:10 Dose: 1 tab Citalopram Hydrobromide (Celexa -) 10 mg PO DAILY [facility] Last Admin: 11/11/18 10:09 Dose: 10 mg Clotrimazole (Lotrisone Cream (Small Tube)) 1 applic TP BID [facility] Last Admin: 11/11/18 10:30 Dose: 1 applic Folic Acid (Folic Acid -) 1 mg PO DAILY [facility] Last Admin: 11/11/18 10:31 Dose: 1 mg Furosemide (Lasix Injection -) 40 mg IVPUSH DAILY [facility] Last Admin: 11/11/18 10:09 Dose: 40 mg Gabapentin (Neurontin -) 300 mg PO HS [facility] Last Admin: 11/10/18 23:00 Dose: 300 mg Heparin Sodium (Porcine) (Heparin -) 5,000 unit SQ BID [facility] Last Admin: 11/11/18 10:09 Dose: 5,000 unit Cefazolin Sodium 1 gm/ (Dextrose) 50 mls @ 100 mls/hr IVPB BID [facility] Last Admin: 11/11/18 10:08 Dose: 100 mls/hr Lisinopril (Prinivil) 20 mg PO DAILY [facility] Last Admin: 11/11/18 10:10 Dose: 20 mg Multivitamins (Total B With C -) 1 each PO DAILY [facility] Last Admin: 11/11/18 10:31 Dose: 1 each Nebivolol (Bystolic -) 2.5 mg PO DAILY [facility] Last Admin: 11/11/18 11:00 Dose: 2.5 mg Pantoprazole Sodium (Protonix -) 40 mg PO DAILY [facility] Last Admin: 11/11/18 10:09 Dose: 40 mg Rosuvastatin Calcium (Crestor -) 10 mg PO HS [facility] Last Admin: 11/10/18 23:00 Dose: 10 mg a/p cellulitis - cefazolin day #2, switch to po keflex for another 5 days CHF/peripheral edema-improved on diuretics please call back if needed Problem List - Problems (1) Cellulitis Code(s): L03.90 - CELLULITIS, UNSPECIFIED (2) Leg swelling Code(s): M79.89 - OTHER SPECIFIED SOFT TISSUE DISORDERS
--- NOTE | 2018-11-11 16:03 | PN ---
Progress Note, Physician History of Present Illness: seen and examined today in nad. lying flat, comfortable, no sob. - Current Medication List Current Medications: Active Medications Acetaminophen (Tylenol -) 650 mg PO Q4H PRN PRN Reason: PAIN SCALE 1-5 Last Admin: 11/11/18 10:10 Dose: 650 mg Calcium Carbonate/Cholecalciferol (Os-Abran 500+D -) 1 tab PO BID [facility] Last Admin: 11/11/18 10:10 Dose: 1 tab Cephalexin HCl (Keflex -) 500 mg PO BID [facility] Citalopram Hydrobromide (Celexa -) 10 mg PO DAILY [facility] Last Admin: 11/11/18 10:09 Dose: 10 mg Clotrimazole (Lotrisone Cream (Small Tube)) 1 applic TP BID [facility] Last Admin: 11/11/18 10:30 Dose: 1 applic Folic Acid (Folic Acid -) 1 mg PO DAILY [facility] Last Admin: 11/11/18 10:31 Dose: 1 mg Furosemide (Lasix Injection -) 40 mg IVPUSH DAILY [facility] Last Admin: 11/11/18 10:09 Dose: 40 mg Gabapentin (Neurontin -) 300 mg PO HS [facility] Last Admin: 11/10/18 23:00 Dose: 300 mg Heparin Sodium (Porcine) (Heparin -) 5,000 unit SQ BID [facility] Last Admin: 11/11/18 10:09 Dose: 5,000 unit Lisinopril (Prinivil) 20 mg PO DAILY [facility] Last Admin: 11/11/18 10:10 Dose: 20 mg Multivitamins (Total B With C -) 1 each PO DAILY [facility] Last Admin: 11/11/18 10:31 Dose: 1 each Nebivolol (Bystolic -) 2.5 mg PO DAILY [facility] Last Admin: 11/11/18 11:00 Dose: 2.5 mg Pantoprazole Sodium (Protonix -) 40 mg PO DAILY [facility] Last Admin: 11/11/18 10:09 Dose: 40 mg Rosuvastatin Calcium (Crestor -) 10 mg PO HS [facility] Last Admin: 11/10/18 23:00 Dose: 10 mg - Objective Vital Signs: Vital Signs Temperature 98.6 F 11/11/18 10:07 Pulse Rate 66 11/11/18 10:07 Respiratory Rate 18 11/11/18 10:07 Blood Pressure 120/70 11/11/18 10:07 O2 Sat by Pulse Oximetry (%) 95 11/10/18 00:25 Constitutional: Yes: No Distress, Calm Eyes: Yes: Conjunctiva Clear, EOM Intact, PERRL HENT: Yes: Atraumatic, Normocephalic Neck: Yes: Supple, Trachea Midline Cardiovascular: Yes: Regular Rate and Rhythm, S1, S2. No: Bradycardia, Tachycardia, Pulse Irregular, Bruit, JVD, Gallop, Murmur, Rub, S3, S4, Varicosities Respiratory: Yes: Regular, CTA Bilaterally. No: Rales, Rhonchi, Wheezes Gastrointestinal: Yes: Normal Bowel Sounds, Soft. No: Distention, Tenderness Musculoskeletal: Yes: WNL Extremities: Yes: Erythema Edema: Yes Edema: LLE: Trace, RLE: Trace Peripheral Pulses WNL: Yes Peripheral Pulses: Left Doralis Pedis: 2+, Right Dorsalis Pedis: 2+ Neurological: Yes: Alert, Oriented Psychiatric: Yes: Alert, Oriented Labs: CBC, BMP 11/10/18 06:55 11/10/18 06:55 - ....Imaging Chest X-ray: Report Reviewed, Image Reviewed EKG: Report Reviewed, Image Reviewed Other: Report Reviewed, Image Reviewed Assessment/Plan Patient is a 87 y/o female with past medical history of HTN, HLD, NIDDM, multiple myeloma. Patient presented to ER with complaints of worsening bilateral lower extremity swelling and redness. LE edema -due to celulitis -abx as per ID reccs CHF-acute on chronic diastolic -lungs are clear -LE edema at least in part due to cellulitis -CXR clear -duplex no DVT -echo showed normal LVEF, minimal valvular abnl -recc to stop IV Lasix -transition to po Lasix 20mg daily No further inpatient cardiac work up is needed at this time. Recc outpatient fup. Please call with any additional questions.
[2018-11-11] MEDS: ROSUVASTATIN CA 10 MG TABLET (FP) PO SCH (22:14)
[2018-11-11] MEDS: CEPHALEXIN MONOHYDRATE 500 MG CAPSULE (UD) PO SCH (22:14)
[2018-11-11] MEDS: GABAPENTIN 100 MG CAPSULE (FP) PO SCH (22:14)
[2018-11-12 06:15] VITALS: BP 110/67; PULSE 72; TEMP 98.4
--- NOTE | 2018-11-12 09:01 | DS ---
Physical Examination Vital Signs: Vital Signs Temperature 98.4 F 11/12/18 06:14 Pulse Rate 72 11/12/18 06:14 Respiratory Rate 20 11/12/18 06:14 Blood Pressure 110/67 11/12/18 06:14 O2 Sat by Pulse Oximetry (%) 95 11/10/18 00:25 Cardiovascular: Yes: Regular Rate and Rhythm Respiratory: Yes: Regular, CTA Bilaterally Gastrointestinal: Yes: Normal Bowel Sounds, Soft Edema: Yes Edema: LLE: Trace, RLE: Trace Integumentary: Yes: Other (LESS ERYTHEMA) Labs: CBC, BMP 11/10/18 06:55 11/10/18 06:55 Discharge Summary Reason For Visit: SWELLING OF LOWER EXTREMITY Current Active Problems CHF (congestive heart failure) (Acute) Cellulitis (Acute) HLD (hyperlipidemia) (Acute) HTN (hypertension) (Acute) Leg swelling (Acute) Tinea pedis (Acute) Hospital Course: - Problems (1) CHF (congestive heart failure) Assessment/Plan: -IV LASIX--PO 20 ECHO CARDIO FOLLOW LABS Code(s): I50.9 - HEART FAILURE, UNSPECIFIED (2) Cellulitis Assessment/Plan: -IV ABX--KEFLEX 500 BID ID ON BOARD Code(s): L03.90 - CELLULITIS, UNSPECIFIED (3) HTN (hypertension) Assessment/Plan: MONITOR Code(s): I10 - ESSENTIAL (PRIMARY) HYPERTENSION (4) Leg swelling Assessment/Plan: DUPLEX NEGATIVE LASIX Code(s): M79.89 - OTHER SPECIFIED SOFT TISSUE DISORDERS (5) Tinea pedis Assessment/Plan: LOTRISONE Code(s): B35.3 - [facility] Condition: Stable - Instructions Referrals: Debo Ceja MD [Staff Physician] - 1 Week Disposition: VNS/HOME HEALTH CARE - Home Medications Comprehensive Discharge Medication List: Ambulatory Orders Aspirin [ASA -] 81 mg PO DAILY 05/19/15 Calcium Carbonate/Vitamin D3 [Calcium 500-Vit D3 200 Caplet] 1 each PO DAILY 06/03 Valacyclovir HCl [Valtrex -] 500 mg PO DAILY 05/19/15 Acetaminophen [Tylenol .Regular Strength -] 650 mg PO Q4H PRN tablet 11/12/18 Cephalexin Monohydrate [Keflex -] 500 mg PO BID #10 capsule 11/12/18 Citalopram Hydrobromide [Celexa -] 10 mg PO DAILY #30 tablet 11/12/18 Clotrimazole/Betamet Diprop [Lotrisone -] 1 applic TP BID #30 grams 11/12/18 Folic Acid - 1 mg PO DAILY tablet 11/12/18 Furosemide [Lasix -] 20 mg PO DAILY #30 tablet 11/12/18 Gabapentin [Neurontin -] 300 mg PO HS #30 capsule 11/12/18 Lisinopril [Prinivil] 20 mg PO DAILY #30 tablet 11/12/18 Nebivolol [Bystolic -] 2.5 mg PO DAILY #30 tab 11/12/18 Pantoprazole Sodium [Protonix -] 40 mg PO DAILY #30 tablet.ec 11/12/18 Rosuvastatin [Crestor -] 10 mg PO HS #30 tablet 11/12/18
[2018-11-12] MEDS ORDERED: FUROSEMIDE 20 MG TABLET (FP) PO SCH (10:00)
[2018-11-12] MEDS: CLOTRIMAZOLE/BETAMET DIPROP 15 GM TUBE TP SCH (10:29)
[2018-11-12] MEDS ORDERED: PT OWN MED DRAWER 7, Y5N ONE (11:08)
[2018-11-12] MEDS: PANTOPRAZOLE 40 MG TABLET (FP) PO SCH (12:18)
[2018-11-12] MEDS: CITALOPRAM HYDROBROMIDE 10 MG TABLET (FP) PO SCH (12:18)
[2018-11-12] MEDS: CALCIUM 500MG/VIT-D 200 UNITS COMBO TABLET (FP) PO SCH (12:18)
[2018-11-12] MEDS: CEPHALEXIN MONOHYDRATE 500 MG CAPSULE (UD) PO SCH (12:18)
[2018-11-12] MEDS: FOLIC ACID 1 MG TABLET (FP) PO SCH (12:18)
[2018-11-12] MEDS: LISINOPRIL 20 MG TABLET (FP) PO SCH (12:18)
[2018-11-12] MEDS: VITAMIN B COMPLEX W/C COMBO TABLET (FP) PO SCH (12:18)
[2018-11-12] MEDS: NEBIVOLOL 2.5 MG TABLET (FP) PO SCH (12:19)
[2018-11-12] MEDS: HEPARIN NA (PORCINE) 5,000 UNITS/ML 1ML VIAL SQ SCH (12:19)
== END 2018-11-12 13:08 | disposition home health service (06) | DRG 602 ==
LOC: JER 13:22 → JERBED 14:38 → J6S 19:16
PROVIDERS: ADMIT Family Medicine; ATTEND Family Medicine
DX: L03.115 Cellulitis of right lower limb (principal); I50.33 Acute on chronic diastolic (congestive) heart failure; C90.00 Multiple myeloma not having achieved remission; E11.9 Type 2 diabetes mellitus without complications; B35.3 Tinea pedis; E78.5 Hyperlipidemia, unspecified; I11.0 Hypertensive heart disease with heart failure
CPT/HCPCS: 36415; 71045-TC-FY; 80053; 82550; 82962; 83735; 83880; 84100; 84436; 84443; 84484; 85025; 87040; 93306-TC; 93970-TC; 97116-GP; 97161-GP; 99282-25; J1644

== ENCOUNTER 2020-10-04 16:03 | Inpatient (IN) | payer OTHER ==
[2020-10-04 18:39] LABS: HEMATOCRIT 29.3 % (32.4-45.2); HEMOGLOBIN 9.6 GM/dL (10.7-15.3); MCH 31.5 pg (25.7-33.7); MCHC 32.9 g/dl (32.0-36.0); MEAN CELL VOLUME 95.9 fl (80-96); NEUT % 79.4 % (42.8-82.8); PLATELET COUNT 475 K/MM3 (134-434); RBC 3.05 M/mm3 (3.60-5.2); RDW 15.1 % (11.6-15.6); WHITE BLOOD COUNT 11.8 K/mm3 (4.0-10.0)
[2020-10-04 18:40] LABS: BASO % 0.7 % (0-2.0); EOS % 0.2 % (0-4.5); LYMPH % 12.6 % (8-40); MONO % 7.1 % (3.8-10.2)
[2020-10-04 18:45] LABS: PROTHROMBIN TIME (PATIENT) 12.1 SEC (9.7-13.0)
[2020-10-04] MEDS ORDERED: VANCOMYCIN 1,250 MG in DEXTROSE 5%-WATER - 250 ML IVPB ONE (18:46)
[2020-10-04 19:14] LABS: CHLORIDE 100 mmol/L (98-107); SODIUM 134 mmol/L (136-145)
[2020-10-04 19:16] LABS: CALCIUM 8.4 mg/dL (8.5-10.1)
[2020-10-04 19:17] LABS: ANION GAP 8 MMOL/L (8-16); CO2 26 mmol/L (21-32); GLUCOSE,RANDOM 118 mg/dL (74-106)
[2020-10-04 19:20] LABS: CREATININE 0.9 mg/dL (0.55-1.3); SGOT/AST 42 U/L (15-37); SGPT/ALT 13 U/L (13-61)
[2020-10-04 19:21] LABS: TOT PROT 6.2 g/dl (6.4-8.2)
[2020-10-04 19:22] LABS: BILIRUBIN,TOTAL 0.7 mg/dL (0.2-1)
[2020-10-04 19:24] LABS: ALK PHOS 93 U/L (45-117)
[2020-10-05] MEDS ORDERED: ACETAMINOPHEN 500 MG TABLET (FP) PO PRN (09:08)
[2020-10-05] MEDS ORDERED: VANCOMYCIN/WATER 1,250 MG/250 ML BAG IVPB SCH (09:15)
[2020-10-05] MEDS ORDERED: MIDODRINE HCL 2.5 MG TABLET PO SCH (09:15)
[2020-10-05] MEDS ORDERED: CHOLECALCIFEROL (VIT D3) 400 UNIT (10 MCG) TABLET PO SCH (09:15)
[2020-10-05] MEDS ORDERED: ZINC SULFATE 220 MG CAPSULE (FP) PO SCH (10:00)
[2020-10-05] MEDS ORDERED: VANCOMYCIN/WATER 1,250 MG/250 ML BAG IVPB ONE (11:00)
[2020-10-05] MEDS: FAMOTIDINE 20 MG TABLET PO SCH (12:05)
[2020-10-05] MEDS: ASCORBIC ACID 500 MG TABLET (FP) PO SCH ×2 (13:04→21:20)
[2020-10-05] MEDS: ASPIRIN COATED 81 MG TABLET.EC PO SCH (13:05)
[2020-10-05] MEDS: FOLIC ACID 1 MG TABLET (FP) PO SCH (13:05)
[2020-10-05] MEDS ORDERED: PIPERACILLIN/TAZOBACTAM 3.375 GM VIAL IVPB ONE ×2 (13:17→17:38)
[2020-10-05] MEDS ORDERED: DEXTROSE 5%-WATER - 50 ML IVPB ONE ×2 (13:17→17:38)
[2020-10-05] MEDS: PIPERACILLIN/TAZOB 3.375 GM 3.375 GM in DEXTROSE 5%-WATER - 50 ML IVPB SCH ×2 (13:22→17:57)
[2020-10-05] MEDS: GABAPENTIN 300 MG CAPSULE PO SCH (21:20)
[2020-10-05] MEDS: ROSUVASTATIN CA 10 MG TABLET (FP) PO SCH (21:20)
[2020-10-06] MEDS ORDERED: DEXTROSE 5%-WATER - 50 ML IVPB ONE ×4 (00:47→18:21)
[2020-10-06] MEDS ORDERED: PIPERACILLIN/TAZOBACTAM 3.375 GM VIAL IVPB ONE ×4 (00:47→18:21)
[2020-10-06] MEDS: PIPERACILLIN/TAZOB 3.375 GM 3.375 GM in DEXTROSE 5%-WATER - 50 ML IVPB SCH ×3 (01:24→18:21)
[2020-10-06] MEDS ORDERED: PATIENT'S OWN MEDICATION (NON-FORMULARY) (Famotidine 40 MG Tablet) PO SCH (10:00)
[2020-10-06] MEDS: ZINC SULFATE 220 MG CAPSULE (FP) PO SCH (10:28)
[2020-10-06] MEDS: ASPIRIN COATED 81 MG TABLET.EC PO SCH (10:28)
[2020-10-06] MEDS: FOLIC ACID 1 MG TABLET (FP) PO SCH (10:29)
[2020-10-06] MEDS: FAMOTIDINE 20 MG TABLET PO SCH (10:29)
[2020-10-06] MEDS: ASCORBIC ACID 500 MG TABLET (FP) PO SCH ×2 (10:29→21:32)
[2020-10-06 11:22] LABS: BASO % 0.2 % (0-2.0); EOS % 0.3 % (0-4.5); HEMATOCRIT 29.3 % (32.4-45.2); HEMOGLOBIN 9.3 GM/dL (10.7-15.3); LYMPH % 12.9 % (8-40); MCH 30.8 pg (25.7-33.7); MCHC 31.9 g/dl (32.0-36.0); MEAN CELL VOLUME 96.6 fl (80-96); MEAN PLT VOLUME 7.4 fl (7.5-11.1); MONO % 6.2 % (3.8-10.2); NEUT % 80.4 % (42.8-82.8); PLATELET COUNT 387 K/MM3 (134-434); RBC 3.03 M/mm3 (3.60-5.2); RDW 14.7 % (11.6-15.6); RETICULOCYTES 1.39 % (0.5-1.5); WHITE BLOOD COUNT 12.1 K/mm3 (4.0-10.0)
[2020-10-06 11:44] LABS: BLOOD UREA NITROGEN 15.1 mg/dL (7-18)
[2020-10-06] MEDS: SODIUM HYPOCHLORITE 0.25%- 473 ML BULK BOTTLE TP SCH (17:35)
[2020-10-06] MEDS: ROSUVASTATIN CA 10 MG TABLET (FP) PO SCH (21:32)
[2020-10-06] MEDS: GABAPENTIN 300 MG CAPSULE PO SCH (21:32)
[2020-10-07] MEDS ORDERED: DEXTROSE 5%-WATER - 50 ML IVPB ONE ×3 (00:49→17:25)
[2020-10-07] MEDS ORDERED: PIPERACILLIN/TAZOBACTAM 3.375 GM VIAL IVPB ONE ×3 (00:49→17:25)
[2020-10-07] MEDS: PIPERACILLIN/TAZOB 3.375 GM 3.375 GM in DEXTROSE 5%-WATER - 50 ML IVPB SCH ×3 (01:23→17:44)
[2020-10-07] MEDS ORDERED: PT OWN MED DRAWER 7, Y5N ONE (10:00)
[2020-10-07] MEDS: MULTIVITAMINS (DAILY MVI) TABLET (FP) PO SCH (10:07)
[2020-10-07] MEDS: ASCORBIC ACID 500 MG TABLET (FP) PO SCH ×2 (10:07→21:25)
[2020-10-07] MEDS: ZINC SULFATE 220 MG CAPSULE (FP) PO SCH (10:07)
[2020-10-07] MEDS: SODIUM HYPOCHLORITE 0.25%- 473 ML BULK BOTTLE TP SCH (10:08)
[2020-10-07] MEDS: FOLIC ACID 1 MG TABLET (FP) PO SCH (10:08)
[2020-10-07] MEDS: ASPIRIN COATED 81 MG TABLET.EC PO SCH (10:08)
[2020-10-07] MEDS: AMINO ACIDS/PROTEIN HYDROLYS 30 ML LIQUID.PKT PO SCH ×2 (10:08→17:43)
[2020-10-07] MEDS: FAMOTIDINE 20 MG TABLET PO SCH (10:09)
[2020-10-07 16:08] LABS: GLIADIN ANTIBODY IGA 3 units (0-19); GLIADIN ANTIBODY IGG 2 units (0-19); TRANSGLUTAMINASE IGG < 2 U/mL (0-5)
[2020-10-07] MEDS: ACETAMINOPHEN 650 MG/20.3 ML ORAL SOLUTION (CUPS) PO PRN (18:26)
[2020-10-07] MEDS: ROSUVASTATIN CA 10 MG TABLET (FP) PO SCH (21:25)
[2020-10-07] MEDS: GABAPENTIN 300 MG CAPSULE PO SCH (21:25)
[2020-10-08] MEDS ORDERED: PIPERACILLIN/TAZOBACTAM 3.375 GM VIAL IVPB ONE ×3 (01:32→17:12)
[2020-10-08] MEDS ORDERED: DEXTROSE 5%-WATER - 50 ML IVPB ONE ×3 (01:32→17:12)
[2020-10-08] MEDS: PIPERACILLIN/TAZOB 3.375 GM 3.375 GM in DEXTROSE 5%-WATER - 50 ML IVPB SCH ×3 (02:17→17:18)
[2020-10-08] MEDS: AMINO ACIDS/PROTEIN HYDROLYS 30 ML LIQUID.PKT PO SCH ×2 (09:02→17:23)
[2020-10-08] MEDS: ASPIRIN COATED 81 MG TABLET.EC PO SCH (10:26)
[2020-10-08] MEDS: FAMOTIDINE 20 MG TABLET PO SCH (10:27)
[2020-10-08] MEDS: ASCORBIC ACID 500 MG TABLET (FP) PO SCH ×2 (10:27→21:22)
[2020-10-08] MEDS: MULTIVITAMINS (DAILY MVI) TABLET (FP) PO SCH (10:27)
[2020-10-08] MEDS: ZINC SULFATE 220 MG CAPSULE (FP) PO SCH (10:27)
[2020-10-08] MEDS: FOLIC ACID 1 MG TABLET (FP) PO SCH (10:27)
[2020-10-08] MEDS: SODIUM HYPOCHLORITE 0.25%- 473 ML BULK BOTTLE TP SCH (10:28)
[2020-10-08] MEDS: ACETAMINOPHEN 650 MG/20.3 ML ORAL SOLUTION (CUPS) PO PRN (17:21)
[2020-10-08] MEDS: COLLAGENASE CLOSTRIDIUM HIST. 30 GRAMS TUBE TP SCH (18:52)
[2020-10-08] MEDS: ROSUVASTATIN CA 10 MG TABLET (FP) PO SCH (21:22)
[2020-10-08] MEDS: GABAPENTIN 300 MG CAPSULE PO SCH (21:22)
[2020-10-08] MEDS: HEPARIN NA (PORCINE) 5,000 UNITS/ML 1ML VIAL SQ SCH (21:26)
[2020-10-09] MEDS ORDERED: DEXTROSE 5%-WATER - 50 ML IVPB ONE ×2 (01:27→09:14)
[2020-10-09] MEDS ORDERED: PIPERACILLIN/TAZOBACTAM 3.375 GM VIAL IVPB ONE ×2 (01:27→09:14)
[2020-10-09] MEDS: PIPERACILLIN/TAZOB 3.375 GM 3.375 GM in DEXTROSE 5%-WATER - 50 ML IVPB SCH ×2 (02:24→09:59)
[2020-10-09 08:51] LABS: HEMATOCRIT 23.9 % (32.4-45.2); HEMOGLOBIN 7.6 GM/dL (10.7-15.3); MCH 31.4 pg (25.7-33.7); MCHC 31.9 g/dl (32.0-36.0); MEAN CELL VOLUME 98.4 fl (80-96); MEAN PLT VOLUME 8.1 fl (7.5-11.1); PLATELET COUNT 274 K/MM3 (134-434); RBC 2.43 M/mm3 (3.60-5.2); RDW 15.2 % (11.6-15.6); WHITE BLOOD COUNT 6.5 K/mm3 (4.0-10.0)
[2020-10-09] MEDS ORDERED: FERRIC CARBOXYMALTOSE 750 MG in SODIUM CHLORIDE 250 ML IVPB ONE (09:00)
[2020-10-09 09:16] LABS: CALCIUM 7.5 mg/dL (8.5-10.1)
[2020-10-09 09:17] LABS: BLOOD UREA NITROGEN 31.1 mg/dL (7-18)
[2020-10-09 09:20] LABS: CREATININE 1.1 mg/dL (0.55-1.3)
[2020-10-09 09:22] LABS: BILIRUBIN,TOTAL 0.4 mg/dL (0.2-1); TOT PROT 4.6 g/dl (6.4-8.2)
[2020-10-09 09:24] LABS: ALBUMIN 1.5 g/dl (3.4-5.0)
[2020-10-09] MEDS: AMINO ACIDS/PROTEIN HYDROLYS 30 ML LIQUID.PKT PO SCH ×2 (09:57→17:29)
[2020-10-09] MEDS: ASCORBIC ACID 500 MG TABLET (FP) PO SCH ×2 (09:58→21:24)
[2020-10-09] MEDS: ZINC SULFATE 220 MG CAPSULE (FP) PO SCH (09:58)
[2020-10-09] MEDS: FAMOTIDINE 20 MG TABLET PO SCH (09:58)
[2020-10-09] MEDS: FOLIC ACID 1 MG TABLET (FP) PO SCH (09:58)
[2020-10-09] MEDS: ASPIRIN COATED 81 MG TABLET.EC PO SCH (09:58)
[2020-10-09] MEDS: HEPARIN NA (PORCINE) 5,000 UNITS/ML 1ML VIAL SQ SCH ×2 (09:58→21:24)
[2020-10-09] MEDS: MULTIVITAMINS (DAILY MVI) TABLET (FP) PO SCH (09:58)
[2020-10-09] MEDS: SODIUM HYPOCHLORITE 0.25%- 473 ML BULK BOTTLE TP SCH (13:14)
[2020-10-09] MEDS: COLLAGENASE CLOSTRIDIUM HIST. 30 GRAMS TUBE TP SCH (14:30)
[2020-10-09] MEDS ORDERED: PT OWN MED DRAWER 7, Y5N ONE (16:43)
[2020-10-09] MEDS: ERTAPENEM SODIUM 1 GM in SODIUM CHLORIDE 50 ML IVPB SCH (17:27)
[2020-10-09] MEDS: GABAPENTIN 300 MG CAPSULE PO SCH (21:24)
[2020-10-09] MEDS: ROSUVASTATIN CA 10 MG TABLET (FP) PO SCH (21:24)
[2020-10-10 08:57] LABS: HEMOGLOBIN 7.2 GM/dL (10.7-15.3); MCH 31.7 pg (25.7-33.7); MCHC 32.5 g/dl (32.0-36.0); MEAN CELL VOLUME 97.7 fl (80-96); MEAN PLT VOLUME 8.1 fl (7.5-11.1); PLATELET COUNT 282 K/MM3 (134-434); RBC 2.26 M/mm3 (3.60-5.2); WHITE BLOOD COUNT 6.9 K/mm3 (4.0-10.0)
[2020-10-10] MEDS: FOLIC ACID 1 MG TABLET (FP) PO SCH (09:19)
[2020-10-10] MEDS: ASPIRIN COATED 81 MG TABLET.EC PO SCH (09:19)
[2020-10-10] MEDS: ASCORBIC ACID 500 MG TABLET (FP) PO SCH ×2 (09:19→21:57)
[2020-10-10] MEDS: ZINC SULFATE 220 MG CAPSULE (FP) PO SCH (09:19)
[2020-10-10] MEDS: FAMOTIDINE 20 MG TABLET PO SCH (09:19)
[2020-10-10] MEDS: AMINO ACIDS/PROTEIN HYDROLYS 30 ML LIQUID.PKT PO SCH ×2 (09:19→17:59)
[2020-10-10] MEDS: MULTIVITAMINS (DAILY MVI) TABLET (FP) PO SCH (09:19)
[2020-10-10] MEDS: HEPARIN NA (PORCINE) 5,000 UNITS/ML 1ML VIAL SQ SCH ×2 (09:20→21:56)
[2020-10-10] MEDS ORDERED: PT OWN MED DRAWER 7, Y5N ONE (09:22)
[2020-10-10] MEDS: ERTAPENEM SODIUM 1 GM in SODIUM CHLORIDE 50 ML IVPB SCH (09:26)
[2020-10-10] MEDS: COLLAGENASE CLOSTRIDIUM HIST. 30 GRAMS TUBE TP SCH (09:26)
[2020-10-10 09:31] LABS: BLOOD UREA NITROGEN 30.3 mg/dL (7-18)
[2020-10-10 09:34] LABS: CREATININE 0.9 mg/dL (0.55-1.3)
[2020-10-10] MEDS ORDERED: FERRIC CARBOXYMALTOSE 750 MG in SODIUM CHLORIDE 250 ML IVPB ONE (14:00)
[2020-10-10] MEDS: GABAPENTIN 300 MG CAPSULE PO SCH (21:57)
[2020-10-10] MEDS: ROSUVASTATIN CA 10 MG TABLET (FP) PO SCH (21:57)
[2020-10-11] MEDS ORDERED: FUROSEMIDE 40 MG/4 ML INJECTABLE VIAL IVPUSH ONE (00:15)
[2020-10-11] MEDS: PATIENT'S OWN MEDICATION (NON-FORMULARY) (Mirabegron [Myrbetriq] 25 MG Tab.Er.24h) PO SCH (08:24)
[2020-10-11 08:53] LABS: HEMATOCRIT 35.9 % (32.4-45.2); MCH 31.3 pg (25.7-33.7); MCHC 33.3 g/dl (32.0-36.0); MEAN PLT VOLUME 8.4 fl (7.5-11.1); PLATELET COUNT 117 K/MM3 (134-434); RBC 3.82 M/mm3 (3.60-5.2); RDW 17.1 % (11.6-15.6); WHITE BLOOD COUNT 7.4 K/mm3 (4.0-10.0)
[2020-10-11 09:23] LABS: CREATININE 0.8 mg/dL (0.55-1.3)
[2020-10-11 09:26] LABS: CALCIUM 8.6 mg/dL (8.5-10.1)
[2020-10-11] MEDS: MULTIVITAMINS (DAILY MVI) TABLET (FP) PO SCH (09:50)
[2020-10-11] MEDS: COLLAGENASE CLOSTRIDIUM HIST. 30 GRAMS TUBE TP SCH (09:50)
[2020-10-11] MEDS: AMINO ACIDS/PROTEIN HYDROLYS 30 ML LIQUID.PKT PO SCH ×2 (09:50→16:39)
[2020-10-11] MEDS: ZINC SULFATE 220 MG CAPSULE (FP) PO SCH (09:50)
[2020-10-11] MEDS: FOLIC ACID 1 MG TABLET (FP) PO SCH (09:50)
[2020-10-11] MEDS: ASPIRIN COATED 81 MG TABLET.EC PO SCH (09:50)
[2020-10-11] MEDS: FAMOTIDINE 20 MG TABLET PO SCH (09:50)
[2020-10-11] MEDS: ASCORBIC ACID 500 MG TABLET (FP) PO SCH ×2 (09:50→21:04)
[2020-10-11] MEDS ORDERED: TOLTERODINE TARTRATE 2 MG TABLET PO SCH ×2 (10:00→12:00)
[2020-10-11] MEDS: ERTAPENEM SODIUM 1 GM in SODIUM CHLORIDE 50 ML IVPB SCH (12:28)
[2020-10-11] MEDS ORDERED: PT OWN MED DRAWER 7, Y5N ONE (16:37)
[2020-10-11] MEDS ORDERED: oxyCODONE HCL 5 MG TABLET PO PRN ×2 (17:16→19:54)
[2020-10-11] MEDS ORDERED: ONDANSETRON 4 MG/2 ML VIAL IVPUSH PRN ×2 (17:16→19:54)
[2020-10-11] MEDS ORDERED: PROMETHAZINE HCL 25 MG/1 ML VIAL IVPUSH PRN ×2 (17:16→19:54)
[2020-10-11] MEDS ORDERED: PROPOFOL 20 ML ONE ×2 (18:01)
[2020-10-11] MEDS ORDERED: LIDOCAINE HCL 1%, 10 MG/ML (20ML VIAL) ONE (18:40)
[2020-10-11] MEDS ORDERED: LIDOCAINE HCL 1%, 10 MG/ML (20ML VIAL) INF ONE (18:55)
[2020-10-11] MEDS ORDERED: ACETAMINOPHEN 650 MG/20.3 ML ORAL SOLUTION (CUPS) PO PRN (19:54)
[2020-10-11] MEDS: HEPARIN NA (PORCINE) 5,000 UNITS/ML 1ML VIAL SQ SCH (21:02)
[2020-10-11] MEDS: ROSUVASTATIN CA 10 MG TABLET (FP) PO SCH (21:04)
[2020-10-11] MEDS: TOLTERODINE TARTRATE 2 MG TABLET PO SCH (21:04)
[2020-10-11] MEDS: GABAPENTIN 300 MG CAPSULE PO SCH (21:04)
[2020-10-12] MEDS: AMINO ACIDS/PROTEIN HYDROLYS 30 ML LIQUID.PKT PO SCH ×2 (08:38→17:16)
[2020-10-12 08:59] LABS: HEMATOCRIT 36.7 % (32.4-45.2); HEMOGLOBIN 12.4 GM/dL (10.7-15.3); MCH 31.2 pg (25.7-33.7); MCHC 33.9 g/dl (32.0-36.0); MEAN CELL VOLUME 92.2 fl (80-96); MEAN PLT VOLUME 7.8 fl (7.5-11.1); PLATELET COUNT 250 K/MM3 (134-434); RBC 3.98 M/mm3 (3.60-5.2); RDW 16.7 % (11.6-15.6); WHITE BLOOD COUNT 7.8 K/mm3 (4.0-10.0)
[2020-10-12 09:23] LABS: CALCIUM 9.3 mg/dL (8.5-10.1)
[2020-10-12 09:24] LABS: BLOOD UREA NITROGEN 33.7 mg/dL (7-18)
[2020-10-12 09:27] LABS: CREATININE 0.8 mg/dL (0.55-1.3)
[2020-10-12] MEDS ORDERED: PT OWN MED DRAWER 7, Y5N ONE ×2 (10:22→21:15)
[2020-10-12] MEDS: HEPARIN NA (PORCINE) 5,000 UNITS/ML 1ML VIAL SQ SCH ×2 (10:28→22:13)
[2020-10-12] MEDS: ASPIRIN COATED 81 MG TABLET.EC PO SCH (10:28)
[2020-10-12] MEDS: FAMOTIDINE 20 MG TABLET PO SCH (10:29)
[2020-10-12] MEDS: MULTIVITAMINS (DAILY MVI) TABLET (FP) PO SCH (10:29)
[2020-10-12] MEDS: ZINC SULFATE 220 MG CAPSULE (FP) PO SCH (10:29)
[2020-10-12] MEDS: ASCORBIC ACID 500 MG TABLET (FP) PO SCH ×2 (10:29→22:12)
[2020-10-12] MEDS: FOLIC ACID 1 MG TABLET (FP) PO SCH (10:29)
[2020-10-12] MEDS: TOLTERODINE TARTRATE 2 MG TABLET PO SCH ×2 (10:29→22:13)
[2020-10-12] MEDS: ERTAPENEM SODIUM 1 GM in SODIUM CHLORIDE 50 ML IVPB SCH (10:30)
[2020-10-12] MEDS: COLLAGENASE CLOSTRIDIUM HIST. 30 GRAMS TUBE TP SCH (10:31)
[2020-10-12] MEDS: ROSUVASTATIN CA 10 MG TABLET (FP) PO SCH (22:13)
[2020-10-12] MEDS: GABAPENTIN 300 MG CAPSULE PO SCH (22:13)
[2020-10-13] MEDS ORDERED: PT OWN MED DRAWER 7, Y5N ONE ×2 (09:35→21:10)
[2020-10-13] MEDS: FAMOTIDINE 20 MG TABLET PO SCH (09:39)
[2020-10-13] MEDS: ZINC SULFATE 220 MG CAPSULE (FP) PO SCH (09:39)
[2020-10-13] MEDS: HEPARIN NA (PORCINE) 5,000 UNITS/ML 1ML VIAL SQ SCH ×2 (09:39→21:51)
[2020-10-13] MEDS: AMINO ACIDS/PROTEIN HYDROLYS 30 ML LIQUID.PKT PO SCH ×2 (09:39→17:47)
[2020-10-13] MEDS: MULTIVITAMINS (DAILY MVI) TABLET (FP) PO SCH (09:40)
[2020-10-13] MEDS: ERTAPENEM SODIUM 1 GM in SODIUM CHLORIDE 50 ML IVPB SCH (09:40)
[2020-10-13] MEDS: FOLIC ACID 1 MG TABLET (FP) PO SCH (09:40)
[2020-10-13] MEDS: TOLTERODINE TARTRATE 2 MG TABLET PO SCH ×2 (09:40→21:51)
[2020-10-13] MEDS: ASPIRIN COATED 81 MG TABLET.EC PO SCH (09:40)
[2020-10-13] MEDS: ASCORBIC ACID 500 MG TABLET (FP) PO SCH ×2 (09:40→21:50)
[2020-10-13] MEDS: COLLAGENASE CLOSTRIDIUM HIST. 30 GRAMS TUBE TP SCH (09:41)
[2020-10-13] MEDS: ROSUVASTATIN CA 10 MG TABLET (FP) PO SCH (21:51)
[2020-10-13] MEDS: GABAPENTIN 300 MG CAPSULE PO SCH (21:51)
[2020-10-14] MEDS ORDERED: PT OWN MED DRAWER 7, Y5N ONE ×2 (10:08→21:00)
[2020-10-14] MEDS: FAMOTIDINE 20 MG TABLET PO SCH (10:13)
[2020-10-14] MEDS: MULTIVITAMINS (DAILY MVI) TABLET (FP) PO SCH (10:13)
[2020-10-14] MEDS: ASPIRIN COATED 81 MG TABLET.EC PO SCH (10:13)
[2020-10-14] MEDS: ZINC SULFATE 220 MG CAPSULE (FP) PO SCH (10:13)
[2020-10-14] MEDS: FOLIC ACID 1 MG TABLET (FP) PO SCH (10:13)
[2020-10-14] MEDS: ASCORBIC ACID 500 MG TABLET (FP) PO SCH ×2 (10:13→22:21)
[2020-10-14] MEDS: HEPARIN NA (PORCINE) 5,000 UNITS/ML 1ML VIAL SQ SCH ×2 (10:14→22:21)
[2020-10-14] MEDS: TOLTERODINE TARTRATE 2 MG TABLET PO SCH ×2 (10:14→23:18)
[2020-10-14] MEDS: AMINO ACIDS/PROTEIN HYDROLYS 30 ML LIQUID.PKT PO SCH ×2 (10:14→19:11)
[2020-10-14] MEDS: ERTAPENEM SODIUM 1 GM in SODIUM CHLORIDE 50 ML IVPB SCH (10:15)
[2020-10-14] MEDS: COLLAGENASE CLOSTRIDIUM HIST. 30 GRAMS TUBE TP SCH (10:15)
[2020-10-14] MEDS: GABAPENTIN 300 MG CAPSULE PO SCH (22:21)
[2020-10-14] MEDS: ROSUVASTATIN CA 10 MG TABLET (FP) PO SCH (22:26)
[2020-10-15] MEDS ORDERED: PT OWN MED DRAWER 7, Y5N ONE ×3 (10:03→20:40)
[2020-10-15] MEDS: TOLTERODINE TARTRATE 2 MG TABLET PO SCH ×2 (10:05→21:31)
[2020-10-15] MEDS: HEPARIN NA (PORCINE) 5,000 UNITS/ML 1ML VIAL SQ SCH ×2 (10:05→21:31)
[2020-10-15] MEDS: ERTAPENEM SODIUM 1 GM in SODIUM CHLORIDE 50 ML IVPB SCH (10:05)
[2020-10-15] MEDS: ASPIRIN COATED 81 MG TABLET.EC PO SCH (10:06)
[2020-10-15] MEDS: ZINC SULFATE 220 MG CAPSULE (FP) PO SCH (10:06)
[2020-10-15] MEDS: ASCORBIC ACID 500 MG TABLET (FP) PO SCH ×2 (10:06→21:30)
[2020-10-15] MEDS: MULTIVITAMINS (DAILY MVI) TABLET (FP) PO SCH (10:06)
[2020-10-15] MEDS: AMINO ACIDS/PROTEIN HYDROLYS 30 ML LIQUID.PKT PO SCH ×2 (10:06→18:16)
[2020-10-15] MEDS: FAMOTIDINE 20 MG TABLET PO SCH (10:06)
[2020-10-15] MEDS: FOLIC ACID 1 MG TABLET (FP) PO SCH (10:06)
[2020-10-15] MEDS: COLLAGENASE CLOSTRIDIUM HIST. 30 GRAMS TUBE TP SCH (13:22)
[2020-10-15 17:40] VITALS: BMI 22.2
[2020-10-15] MEDS: GABAPENTIN 300 MG CAPSULE PO SCH (21:30)
[2020-10-15] MEDS: ROSUVASTATIN CA 10 MG TABLET (FP) PO SCH (21:30)
[2020-10-16] MEDS: ASCORBIC ACID 500 MG TABLET (FP) PO SCH ×2 (09:12→22:24)
[2020-10-16] MEDS: ASPIRIN COATED 81 MG TABLET.EC PO SCH (09:12)
[2020-10-16] MEDS: ZINC SULFATE 220 MG CAPSULE (FP) PO SCH (09:12)
[2020-10-16] MEDS: FAMOTIDINE 20 MG TABLET PO SCH (09:12)
[2020-10-16] MEDS: AMINO ACIDS/PROTEIN HYDROLYS 30 ML LIQUID.PKT PO SCH ×2 (09:12→17:08)
[2020-10-16] MEDS: FOLIC ACID 1 MG TABLET (FP) PO SCH (09:13)
[2020-10-16] MEDS: HEPARIN NA (PORCINE) 5,000 UNITS/ML 1ML VIAL SQ SCH ×2 (09:13→22:23)
[2020-10-16] MEDS: TOLTERODINE TARTRATE 2 MG TABLET PO SCH ×2 (09:13→22:24)
[2020-10-16] MEDS: COLLAGENASE CLOSTRIDIUM HIST. 30 GRAMS TUBE TP SCH (09:14)
[2020-10-16] MEDS: ERTAPENEM SODIUM 1 GM in SODIUM CHLORIDE 50 ML IVPB SCH (09:14)
[2020-10-16] MEDS: MULTIVITAMINS (DAILY MVI) TABLET (FP) PO SCH (09:17)
[2020-10-16] MEDS ORDERED: PT OWN MED DRAWER 7, Y5N ONE (21:48)
[2020-10-16] MEDS: GABAPENTIN 300 MG CAPSULE PO SCH (22:24)
[2020-10-16] MEDS: ROSUVASTATIN CA 10 MG TABLET (FP) PO SCH (22:24)
[2020-10-17] MEDS ORDERED: PT OWN MED DRAWER 7, Y5N ONE (08:35)
[2020-10-17 08:41] VITALS: BP 125/71; PULSE 88; TEMP 97.7
[2020-10-17] MEDS: ASCORBIC ACID 500 MG TABLET (FP) PO SCH (09:00)
[2020-10-17] MEDS: FAMOTIDINE 20 MG TABLET PO SCH (09:00)
[2020-10-17] MEDS: MULTIVITAMINS (DAILY MVI) TABLET (FP) PO SCH (09:00)
[2020-10-17] MEDS: AMINO ACIDS/PROTEIN HYDROLYS 30 ML LIQUID.PKT PO SCH (09:00)
[2020-10-17] MEDS: ASPIRIN COATED 81 MG TABLET.EC PO SCH (09:00)
[2020-10-17] MEDS: TOLTERODINE TARTRATE 2 MG TABLET PO SCH (09:00)
[2020-10-17] MEDS: HEPARIN NA (PORCINE) 5,000 UNITS/ML 1ML VIAL SQ SCH (09:01)
[2020-10-17] MEDS: FOLIC ACID 1 MG TABLET (FP) PO SCH (09:01)
[2020-10-17] MEDS: ZINC SULFATE 220 MG CAPSULE (FP) PO SCH (09:01)
[2020-10-17] MEDS: ERTAPENEM SODIUM 1 GM in SODIUM CHLORIDE 50 ML IVPB SCH (09:06)
[2020-10-17] MEDS: COLLAGENASE CLOSTRIDIUM HIST. 30 GRAMS TUBE TP SCH (10:00)
== END 2020-10-17 12:00 | DRG 570 ==
LOC: JER 16:03 → J8W 20:59
PROVIDERS: ADMIT Hospitalist; ATTEND Family Medicine
PROC: 0JB70ZZ Excision of Back Subcutaneous Tissue and Fascia, Open Approach (ICD-10-PCS; principal; 2020-10-11 19:00)
PROC: 2W15X6Z Compression of Back using Pressure Dressing (ICD-10-PCS; 2020-10-13)
PROC: 02HV33Z Insertion of Infusion Device into Superior Vena Cava, Percutaneous Approach (ICD-10-PCS; 2020-10-13)
PROC: B518ZZA Fluoroscopy of Superior Vena Cava, Guidance (ICD-10-PCS; 2020-10-13)
DX: L89.154 Pressure ulcer of sacral region, stage 4 (principal); G93.41 Metabolic encephalopathy; G82.50 Quadriplegia, unspecified; G95.20 Unspecified cord compression; C90.00 Multiple myeloma not having achieved remission; M47.12 Other spondylosis with myelopathy, cervical region; M50.00 Cervical disc disorder with myelopathy, unspecified cervical region; Z16.12 Extended spectrum beta lactamase (ESBL) resistance; D72.829 Elevated white blood cell count, unspecified; D64.9 Anemia, unspecified; E78.5 Hyperlipidemia, unspecified; M48.02 Spinal stenosis, cervical region; R60.0 Localized edema; L89.610 Pressure ulcer of right heel, unstageable; E11.9 Type 2 diabetes mellitus without complications; I11.0 Hypertensive heart disease with heart failure; M79.605 Pain in left leg; I50.9 Heart failure, unspecified; R26.9 Unspecified abnormalities of gait and mobility; R63.0 Anorexia; G30.9 Alzheimer's disease, unspecified; F02.80 Dementia in other diseases classified elsewhere, unspecified severity, without behavioral disturbance, psychotic disturbance, mood disturbance, and anxiety; Z85.3 Personal history of malignant neoplasm of breast; Z87.442 Personal history of urinary calculi; Z68.22 Body mass index [BMI] 22.0-22.9, adult
CPT/HCPCS: 36415; 36430; 36569; 70450-TC; 71045-TC-FY; 72125-TC; 72141-TC; 80048; 80053; 82550; 82607; 82728; 82746; 82784; 83516; 83540; 83550; 84443; 84484; 85025; 85027; 85045; 85610; 85730; 86140; 86780; 86850; 86900; 86901; 86922; 87040; 87070; 87186; 87205; 88304-TC; 93005; 93010; 93971; 94760; 97116-GP; 97161-GP; 97163-GP; 99285-25; A6212; C9803; G0463-25; J1439; J1644; P9058; U0003; U0005

== ENCOUNTER 2021-05-21 16:47 | Inpatient (IN) | payer OTHER ==
[2021-05-21 17:43] VITALS: BMI 23.4
[2021-05-21] MEDS ORDERED: VANCOMYCIN 1 GM in D5W (PRE-DOCKED) 1,000 MG/250 ML IVPB ONE (18:17)
[2021-05-21] MEDS ORDERED: LACTATED RINGERS SOLUTION 1000 ML INFUS.BAG IV ONE ×2 (18:17→21:52)
[2021-05-21] MEDS ORDERED: ACETAMINOPHEN 1000 MG/100 ML BAG IVPB ONE (18:17)
[2021-05-21] MEDS ORDERED: PIPERACILLIN/TAZOB 4.5 GM 4.5 GM in DEXTROSE 5%-WATER 100 ML IVPB ONE ×2 (18:17→20:45)
[2021-05-21] MEDS ORDERED: ACETAMINOPHEN INJECTION 100 ML IVPB ONE (19:43)
[2021-05-21] MEDS ORDERED: VANCOMYCIN 1 GRAM (PRE-DOCKED) 1,000 MG/250 ML BAG IVPB ONE (20:14)
[2021-05-21 20:53] LABS: BASO % 0.2 % (0-2.0); HEMATOCRIT 37.5 % (32.4-45.2); HEMOGLOBIN 12.2 GM/dL (10.7-15.3); LYMPH % 9.9 % (8-40); MCH 31.2 pg (25.7-33.7); MCHC 32.5 g/dl (32.0-36.0); MEAN CELL VOLUME 95.9 fl (80-96); MEAN PLT VOLUME 8.2 fl (7.5-11.1); MONO % 3.9 % (3.8-10.2); PLATELET COUNT 264 10^3/uL (134-434); RBC 3.91 M/mm3 (3.60-5.2); RDW 14.4 % (11.6-15.6); VENOUS BASE EXCESS 5.3 mmol/L (-2-2); VENOUS O2 SATURATION 93.3 % (70-80); VENOUS PH 7.424 (7.310-7.410); WHITE BLOOD COUNT 19.2 K/mm3 (4.0-10.0)
[2021-05-21 21:20] LABS: CHLORIDE 98 mmol/L (98-107); SODIUM 137 mmol/L (136-145)
[2021-05-21 21:22] LABS: CALCIUM 9.5 mg/dL (8.5-10.1)
[2021-05-21 21:23] LABS: ALBUMIN 2.8 g/dl (3.4-5.0); ANION GAP 9 MMOL/L (8-16); CO2 29 mmol/L (21-32); GLUCOSE,RANDOM 165 mg/dL (74-106); MAGNESIUM 2.3 mg/dL (1.8-2.4)
[2021-05-21 21:25] LABS: CREATININE 1.2 mg/dL (0.55-1.3); SGPT/ALT 47 U/L (13-61)
[2021-05-21 21:26] LABS: PHOSPHOROUS 3.8 mg/dL (2.5-4.9); SGOT/AST 78 U/L (15-37)
[2021-05-21 21:27] LABS: BILIRUBIN,TOTAL 0.7 mg/dL (0.2-1); TOT PROT 6.6 g/dl (6.4-8.2)
[2021-05-21 21:28] LABS: ALK PHOS 74 U/L (45-117)
[2021-05-21 22:23] LABS: EPI CELLS 29 /uL (0-25.1); HYALINE CASTS 9 /uL (0-3.1); URINE APPEARANCE TURBID; URINE BACTERIA >9,000 /uL (0-1359); URINE BILIRUBIN NEGATIVE (NEGATIVE); URINE COLOR DK YELLOW; URINE GLUCOSE (UA) NEGATIVE (NEGATIVE); URINE KETONE NEGATIVE (NEGATIVE); URINE LEUK ESTERASE 3+ (NEGATIVE); URINE NITRITE POSITIVE (NEGATIVE); URINE PROTEIN 1+ (NEGATIVE); URINE WBC 19324 /uL (0-25.8)
[2021-05-22 03:47] LABS: URINE RBC 271.9 /uL (0-23.9)
[2021-05-22] MEDS ORDERED: ACETAMINOPHEN 1000 MG/100 ML BAG IVPB PRN (06:17)
[2021-05-22] MEDS ORDERED: PIPERACILLIN/TAZOB 3.375 GM 3.375 GM in DEXTROSE 5%-WATER - 50 ML IVPB SCH (10:00)
[2021-05-22 11:17] LABS: ALBUMIN 2.3 g/dl (3.4-5.0); BILIRUBIN,TOTAL 0.8 mg/dL (0.2-1); BLOOD UREA NITROGEN 23.9 mg/dL (7-18); CALCIUM 8.7 mg/dL (8.5-10.1); CREATININE 1.1 mg/dL (0.55-1.3); TOT PROT 5.7 g/dl (6.4-8.2)
[2021-05-22] MEDS ORDERED: VANCOMYCIN 1 GRAM (PRE-DOCKED) 1,000 MG/250 ML BAG IVPB ONE ×2 (13:15→15:49)
[2021-05-22] MEDS ORDERED: ERTAPENEM SODIUM 1 GM VIAL ONE (15:49)
[2021-05-22] MEDS: ERTAPENEM SODIUM 1 GM in SODIUM CHLORIDE 50 ML IVPB SCH (16:00)
[2021-05-22] MEDS ORDERED: VANCOMYCIN 750 MG in DEXTROSE 5%-WATER - 150 ML IVPB SCH (22:00)
[2021-05-23 07:07] LABS: BASO % 0.4 % (0-2.0); EOS % 0.2 % (0-4.5); HEMATOCRIT 35.5 % (32.4-45.2); LYMPH % 15.2 % (8-40); MCH 32.4 pg (25.7-33.7); MCHC 33.9 g/dl (32.0-36.0); MEAN CELL VOLUME 95.7 fl (80-96); MEAN PLT VOLUME 7.6 fl (7.5-11.1); MONO % 5.3 % (3.8-10.2); NEUT % 78.9 % (42.8-82.8); PLATELET COUNT 243 10^3/uL (134-434); RBC 3.71 M/mm3 (3.60-5.2); RDW 14.6 % (11.6-15.6); WHITE BLOOD COUNT 8.9 K/mm3 (4.0-10.0)
[2021-05-23 09:00] LABS: ALBUMIN 2.4 g/dl (3.4-5.0); CALCIUM 9.1 mg/dL (8.5-10.1)
[2021-05-23 09:04] LABS: CREATININE 1.1 mg/dL (0.55-1.3)
[2021-05-23 09:05] LABS: BILIRUBIN,TOTAL 0.6 mg/dL (0.2-1); TOT PROT 6.4 g/dl (6.4-8.2)
[2021-05-23] MEDS ORDERED: PT OWN MED DRAWER 7, Y5N ONE (11:14)
[2021-05-23] MEDS: ERTAPENEM SODIUM 1 GM in SODIUM CHLORIDE 50 ML IVPB SCH ×2 (11:20→17:00)
[2021-05-23] MEDS ORDERED: FLU VACC QS2021-22(6MOS UP)/PF 60 MCG/0.5 ML SYRINGE IM ONE (19:30)
[2021-05-23] MEDS: ROSUVASTATIN CA 10 MG TABLET PO SCH (23:08)
[2021-05-24 08:17] LABS: BASO % 0.3 % (0-2.0); EOS % 0.3 % (0-4.5); HEMATOCRIT 35.3 % (32.4-45.2); HEMOGLOBIN 11.6 GM/dL (10.7-15.3); LYMPH % 20.4 % (8-40); MCH 31.5 pg (25.7-33.7); MCHC 32.8 g/dl (32.0-36.0); MEAN CELL VOLUME 96.1 fl (80-96); MEAN PLT VOLUME 7.7 fl (7.5-11.1); MONO % 4.4 % (3.8-10.2); NEUT % 74.6 % (42.8-82.8); PLATELET COUNT 271 10^3/uL (134-434); RBC 3.68 M/mm3 (3.60-5.2); RDW 14.6 % (11.6-15.6); WHITE BLOOD COUNT 7.7 K/mm3 (4.0-10.0)
[2021-05-24 08:35] LABS: BLOOD UREA NITROGEN 28.3 mg/dL (7-18); CALCIUM 8.4 mg/dL (8.5-10.1)
[2021-05-24 08:36] LABS: ALBUMIN 2.4 g/dl (3.4-5.0)
[2021-05-24 08:38] LABS: CREATININE 1.2 mg/dL (0.55-1.3)
[2021-05-24 08:40] LABS: BILIRUBIN,TOTAL 0.5 mg/dL (0.2-1)
[2021-05-24] MEDS ORDERED: PT OWN MED DRAWER 7, Y5N ONE (08:45)
[2021-05-24] MEDS: ASPIRIN COATED 81 MG TABLET.EC PO SCH (09:26)
[2021-05-24] MEDS: ERTAPENEM SODIUM 1 GM in SODIUM CHLORIDE 50 ML IVPB SCH ×2 (09:28→12:26)
[2021-05-24] MEDS: ROSUVASTATIN CA 10 MG TABLET PO SCH (21:28)
[2021-05-25] MEDS ORDERED: cefTRIAXone SODIUM 1 GM VIAL ONE (09:43)
[2021-05-25] MEDS ORDERED: DEXTROSE 5%-WATER - 50 ML IVPB ONE (09:43)
[2021-05-25] MEDS ORDERED: CEFTRIAXONE 1 GM in DEXTROSE 5%-WATER - 50 ML IVPB SCH (10:00)
[2021-05-25] MEDS: ASPIRIN COATED 81 MG TABLET.EC PO SCH (10:22)
[2021-05-25] MEDS: ROSUVASTATIN CA 10 MG TABLET PO SCH (22:35)
[2021-05-25] MEDS: ASCORBIC ACID 250 MG TABLET (FP) PO SCH (22:35)
[2021-05-26] MEDS ORDERED: DEXTROSE 5%-WATER - 50 ML IVPB ONE (09:54)
[2021-05-26] MEDS ORDERED: cefTRIAXone SODIUM 1 GM VIAL ONE (09:54)
[2021-05-26] MEDS: ZINC SULFATE 220 MG CAPSULE (FP) PO SCH (10:20)
[2021-05-26] MEDS: ASCORBIC ACID 250 MG TABLET (FP) PO SCH ×2 (10:20→21:12)
[2021-05-26] MEDS: CEFTRIAXONE 1 GM in DEXTROSE 5%-WATER - 50 ML IVPB SCH (10:21)
[2021-05-26] MEDS: ASPIRIN COATED 81 MG TABLET.EC PO SCH (10:21)
[2021-05-26] MEDS: MULTIVITAMINS THER W-MINERALS COMBO TABLET (FP) PO SCH (10:21)
[2021-05-26] MEDS: PATIENT'S OWN MEDICATION (NON-FORMULARY) (Famotidine 40 MG Tablet) PO SCH (13:53)
[2021-05-26] MEDS: ROSUVASTATIN CA 10 MG TABLET PO SCH (21:12)
[2021-05-27] MEDS ORDERED: cefTRIAXone SODIUM 1 GM VIAL ONE (08:42)
[2021-05-27] MEDS ORDERED: DEXTROSE 5%-WATER - 50 ML IVPB ONE (08:42)
[2021-05-27] MEDS: ASPIRIN COATED 81 MG TABLET.EC PO SCH (09:05)
[2021-05-27] MEDS: MULTIVITAMINS THER W-MINERALS COMBO TABLET (FP) PO SCH (09:05)
[2021-05-27] MEDS: ASCORBIC ACID 250 MG TABLET (FP) PO SCH ×2 (09:05→21:32)
[2021-05-27] MEDS: ZINC SULFATE 220 MG CAPSULE (FP) PO SCH (09:05)
[2021-05-27] MEDS: CEFTRIAXONE 1 GM in DEXTROSE 5%-WATER - 50 ML IVPB SCH (09:06)
[2021-05-27] MEDS: PATIENT'S OWN MEDICATION (NON-FORMULARY) (Famotidine 40 MG) PO SCH (10:00)
[2021-05-27] MEDS ORDERED: PT OWN MED DRAWER 7, Y5N ONE (20:28)
[2021-05-27] MEDS: ROSUVASTATIN CA 10 MG TABLET PO SCH (21:32)
[2021-05-27] MEDS ORDERED: FAMOTIDINE 20 MG TABLET PO SCH (22:00)
[2021-05-28] MEDS ORDERED: cefTRIAXone SODIUM 1 GM VIAL ONE (09:22)
[2021-05-28] MEDS ORDERED: DEXTROSE 5%-WATER - 50 ML IVPB ONE (09:22)
[2021-05-28] MEDS: ZINC SULFATE 220 MG CAPSULE (FP) PO SCH (09:44)
[2021-05-28] MEDS: CEFTRIAXONE 1 GM in DEXTROSE 5%-WATER - 50 ML IVPB SCH (09:44)
[2021-05-28] MEDS: ASCORBIC ACID 250 MG TABLET (FP) PO SCH ×2 (09:44→22:02)
[2021-05-28] MEDS: MULTIVITAMINS THER W-MINERALS COMBO TABLET (FP) PO SCH (09:44)
[2021-05-28] MEDS: ASPIRIN COATED 81 MG TABLET.EC PO SCH (09:44)
[2021-05-28] MEDS: ROSUVASTATIN CA 10 MG TABLET PO SCH (22:02)
[2021-05-29] MEDS ORDERED: cefTRIAXone SODIUM 1 GM VIAL ONE (09:53)
[2021-05-29] MEDS ORDERED: DEXTROSE 5%-WATER - 50 ML IVPB ONE (09:53)
[2021-05-29] MEDS: ZINC SULFATE 220 MG CAPSULE (FP) PO SCH (09:55)
[2021-05-29] MEDS: ASCORBIC ACID 250 MG TABLET (FP) PO SCH (09:55)
[2021-05-29] MEDS: ASPIRIN COATED 81 MG TABLET.EC PO SCH (09:55)
[2021-05-29] MEDS: MULTIVITAMINS THER W-MINERALS COMBO TABLET (FP) PO SCH (09:56)
[2021-05-29] MEDS: CEFTRIAXONE 1 GM in DEXTROSE 5%-WATER - 50 ML IVPB SCH (09:56)
[2021-05-29 15:27] VITALS: BP 130/74; PULSE 98; TEMP 98.8
== END 2021-05-29 15:25 | disposition home health service (06) | DRG 689 ==
LOC: JER 16:47 → JERBED 18:43 → J4W 05-23 10:04 → J8W 05-25 19:25
PROVIDERS: ADMIT Internal Medicine; ATTEND Family Medicine
DX: N39.0 Urinary tract infection, site not specified (principal); L89.154 Pressure ulcer of sacral region, stage 4; G93.41 Metabolic encephalopathy; C90.00 Multiple myeloma not having achieved remission; G82.20 Paraplegia, unspecified; G95.9 Disease of spinal cord, unspecified; E78.5 Hyperlipidemia, unspecified; D64.9 Anemia, unspecified; G30.9 Alzheimer's disease, unspecified; F02.80 Dementia in other diseases classified elsewhere, unspecified severity, without behavioral disturbance, psychotic disturbance, mood disturbance, and anxiety; Z85.3 Personal history of malignant neoplasm of breast; E11.9 Type 2 diabetes mellitus without complications; R50.9 Fever, unspecified; D72.829 Elevated white blood cell count, unspecified; I11.0 Hypertensive heart disease with heart failure; I50.9 Heart failure, unspecified; B96.20 Unspecified Escherichia coli [E. coli] as the cause of diseases classified elsewhere
CPT/HCPCS: 36415; 70450-TC; 71045-TC-FY; 74176-TC; 80053; 81003; 82803; 83605; 83735; 84100; 84484; 85025; 86140; 87040; 87086; 87186; 87804; 90686; 93005; 93010; 99285-25; C9803; G0008; J0131; U0003; U0005